=== PATIENT | female | born 1960 | race Caucasian/White ===

== ENCOUNTER 2017-09-23 11:05 | Inpatient (IN) | payer SELFPAY ==
[2017-09-23] VITALS (18 sets, daily range): BP systolic 144–180; BP diastolic 90–130; PULSE 95–113; RESP 18–30; TEMP 36.6–36.8; O2SAT 84–99; BMI 52.0; BMI 51.3; BMI 51.4
--- NOTE | 2017-09-23 11:44 | RAD_ITS ---
STUDY: X-RAY CHEST REASON FOR EXAM: Female, 57 years old. Increasing shortness of breath. Weight gain. TECHNIQUE: PA and lateral views of the chest. COMPARISON: None. FINDINGS: EKG electrodes are seen. There is evidence of vascular congestion and CHF. Blunting of the right costophrenic angle. There is mild cardiac enlargement. Normal mediastinum and ijeoma. Normal visualized pulmonary arteries. There is atherosclerotic calcification of the aortic arch with tortuosity. There are mild degenerative changes of the visualized thoracic spine. Normal visualized ribs, clavicles, and shoulders. There is no demonstrated abnormality of the visualized soft tissue structures of the upper abdomen. RAD/Chest PA and Lateral IMPRESSION: Cardiomegaly and CHF. Electronically Signed: Esteban Perry MD at 13:15 EST Tel [phone], Service support ,
--- NOTE | 2017-09-23 11:44 | EKG12_ITS ---
Test Reason : SOB Blood Pressure : / mmHG Vent. Rate : 101 BPM Atrial Rate : 101 BPM P-R Int : 138 ms QRS Dur : 076 ms QT Int : 360 ms P-R-T Axes : 043 -17 048 degrees QTc Int : 466 ms Sinus tachycardia with occasional Premature ventricular complexes Low voltage QRS (limb leads) Poor R wave progression Confirmed by BARI THRASHER, JOSETTE ([id number]), film and video editor JOS LOPEZ ([id number]) on 09/25/2017 1:23:43 PM Referred By: PATI/TONE Confirmed By:JOSETTE CANDELARIA MD
[2017-09-23 12:09] LABS: Absolute Lymphocyte Count 0.89 X10^3/ul (0.83-4.51); Absolute Neutrophil Count 8.7 X10^3/uL (2.0-7.7); Basophil# 0.05 X10^3/uL; Basophil% 0.5 % (0-1); Eosinophil# 0.31 X10^3/uL; Eosinophils% 2.8 % (0-5); Hemoglobin 14.5 g/dl (12.0-15.0); Lymphocyte # 0.89 X10^3/ul (4.0); Lymphocyte % 8.1 % (19-41); Mean Corp Hgb Conc 30.9 g/gl (32-36); Mean Corpuscular Hgb 27.2 pg (27.0-32.0); Mean Platelet Vol. 12.1 fl (6.2-12.0); Monocyte# 0.87 X10^3/uL; Monocyte% 7.9 % (0-10); Neutrophil # 8.71 X10^3/uL (2.7-7.7); Neutrophil % 79.3 % (47-70); Platelet Count 184 K/mm3 (150-450); RBC Distribution Width SD 48.3 fl (35.1-43.9); Red Blood Count 5.34 M/mm3 (4.2-5.4)
[2017-09-23 12:10] LABS: POSITIVE COUNT NO; POSITIVE DIFFERENTIAL NO; POSITIVE MORPHOLOGY NO
[2017-09-23 12:23] LABS: Anion Gap 4 (5-15); BUN 15 mg/dL (7-18); BUN/Creat Ratio 16.6 RATIO (10-20); Chloride 104 mmol/L (98-107); EST Glomerular Filtration Rate 69 mL/min (>60); Est Glom Filt Rate - Afr Amer 83 mL/min (>60); Estimated Creatinine Clearance 60.27 ml/min; Glucose 103 mg/dL (74-106); Potassium 3.3 mmol/L (3.5-5.1); Sodium Level 143 mmol/L (136-145)
[2017-09-23] MEDS: Ipratropium/Albuterol Sulfate 3 ML AMPUL.NEB INHALATION ×3 (12:33→22:15)
[2017-09-23 12:56] LABS: BNP,B-Type NATRIURETIC PEPTIDE 406.5 pg/mL (0-100)
--- NOTE | 2017-09-23 13:34 | ED.VISSUMM ---
- ER Visit Summary Date of Service: 09/23/17 Chief Complaint: Shortness of breath History of Present Illness: The patient is a 57 F presents with shortness of breath. This is been present for about 2 months. She was initially treated with a diuretic by the clinic. She had improvement after about 5 days. She is not currently on diuretic. She reports increased shortness of breath for the past few days. She also notes a significant weight gain as well as increased edema in the lower extremities. She was initially seen in urgent care but given hypertension and concern for CHF she was sent here for evaluation. She denies nausea vomiting fevers or any pain. She does report a nonproductive cough. Physical Examination: Initial pulse ox 84% on room air, 97% on 2 L nasal cannula initial blood pressure 180/130 respiratory rate 29 Moist mucous membranes Heart regular rate and rhythm Patient is tachypneic with bibasilar rales as well as wheezing Abdomen soft and nontender 2+ symmetric pitting lower extremity edema as well as chronic venous stasis changes Test Results: EKG shows sinus rhythm at a rate of 101 with PVCs. Chest x-ray does show cardiomegaly and congestive heart failure. Laboratory studies are notable for beta natruretic peptide of 406. Troponin negative. Emergency Department Course and Treatment: Workup is consistent with new onset congestive heart failure. Patient was given IV Lasix and admitted for further management. Treatment Plan: [] Disposition: Admit Impression: New onset congestive heart failure This note was generated with [employer] dictation software. It may contain incorrect words, spelling, and punctuation that were not noted in review of the chart prior to signing ED Disposition - Plan for ED Patient: Chief Complaint: Shortness of Breath Referrals: Sheri Liu,Out of [Primary Care Provider] -
--- NOTE | 2017-09-23 13:37 | PCM.HP.STD ---
Problem List (1) Acute CHF (congestive heart failure) Status: Acute (2) Hypertension Status: Chronic (3) Morbid obesity Status: Chronic History of Present Illness Date of Admission: 09/23/17 Chief Complaint: Shortness of breath for months The patient is a 57 year old F with past medical history of hypertension, morbid obesity, comes in with gradual onset of bilateral leg swelling as well as anterior abdominal wall swelling with weight gain, shortness of breath at rest and on exertion, orthopnea and PND since May 2017. She says she has no insurance and [facility] She last saw the doctors in the [facility] in July 2017, was given some breathing treatment for asthma and also a 2 week course of Lasix, which was stopped when she returned for follow-up. Denied any chest pain no dizziness or palpitations. She has no history of heart failure. Vitals in the ED showed temperature of 98F, heart rate of 104, blood pressure is 179/118, respiratory rate was 30, oxygen saturation was 84% on room air, which improved to 96% on 2 L of oxygen. Blood work shows CBC count of 11.0 hemoglobin 14.5 platelet of 184, sodium 143, potassium 3.3, chloride 104, bicarbonate 35, BUN 15 creatinine 0.9, BNP was 406. Chest x-ray shows evidence of vascular congestion suggestive of CHF. Past Medical History Past Medical History (Chronic Problems): Chronic Problems Hypertension (Chronic) Morbid obesity (Chronic) Allergies Penicillins Adverse Reaction (Verified 08/02/15 08:50) Unknown Home Medications: Ambulatory Orders Medication Instructions Recorded Aspirin [Aspirin, Baby] 81 mg PO DAILY 09/23/17 Cholecalciferol (Vitamin D3) 1 tab PO DAILY 09/23/17 [Vitamin D3] Hydrochlorothiazide [Hctz] 12.5 mg PO BID 09/23/17 Losartan Potassium 100 mg PO DAILY 09/23/17 Surgical History: cholecystectomy, herniorrhaphy - bilateral, hysterectomy - with oopherectomy Psychiatric History: No pertinent 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 Dyspnea. Denies: Chest Pain, Claudication, Chest Tightness, Palpitations, Syncope Respiratory: Reports: Shortness of Breath, Shortness of breath at rest, Shortness of breath upon exertion. Denies: Cough, Hemoptysis, Sputum production Gastrointestinal: Denies: Abdominal Pain, Constipation, Diarrhea, Hematemesis, Nausea, Vomiting Genitourinary: Denies: Dysuria, Frequency, Incontinence Musculoskeletal: Denies: Joint Pain, Joint stiffness, Joint swelling, Joint Tenderness Skin: Denies: Rash, Wounds Neurological: Denies: Difficulty swallowing, Focal weakness, Numbness, Tingling Psychiatric: Denies: Anxiety, Depression, Homicidal Ideations, Suicidal Ideations Endocrine: Denies: Heat/ Cold Intolerance, Polyuria Hematologic/ Lymphatic: Denies: Easy Bruising, Easy Bleeding VTE Information - Inpt Only VTE Present on Admission: No VTE Mechan Device Prophylaxis: None VTE Pharm Prophylaxis ordered?: Yes Patient Problems: Active and Suspected Problems Acute CHF (congestive heart failure) (Acute) - Physical Exam General: Alert, Oriented x3, Cooperative, No apparent distress HEENT: Atraumatic, PERRLA, EOMI, Normocephalic Oral: Moist Mucosa Neck: Supple, - - Short thick neck Lungs: Normal air movement, Diminished - at the lung bases Cardiovascular: Regular rate, Regular Rhythm, Normal S1, Normal S2, No murmurs Abdomen: Bowel Sounds Present, Soft, Non Tender, Non-Distended, No Hepato-splenomegaly, Obese, - - with severe edema of anterior abdominal wall. Extremities: No edema, Capillary Refill Less than 3 Seconds Skin: No rashes Musculoskeletal: No Tenderness to Palpation of Joints or Extremities Lymphatic: No Cervical, Supraclavicular, or Inguinal Adenopathy Neurological: Cranial nerves II-XII grossly intact, Neuro grossly intact Psych/Mental Status: Normal Affect, Appropriate Vital Signs Temp Pulse Resp BP Pulse Ox 98.0 F 96 28 H 164/116 H 96 09/23/17 11:05 09/23/17 13:11 09/23/17 13:11 09/23/17 13:11 09/23/17 13:11 Oxygen Flow Rate 2 Oxygen Delivery Method Nasal Cannula Weight: 137.3 kg Body Mass Index (BMI) 52.0 Laboratory Tests Past 24 Hrs 09/23/17 09/23/17 09/23/17 11:58 11:58 11:58 WBC 11.0 RBC 5.34 Hgb 14.5 Hct 47.0 MCV 88.0 MCH 27.2 MCHC 30.9 L RDW 15.0 H RDW Differential 48.3 H Plt Count 184 MPV 12.1 H Immature Gran % (Auto) 1.400 H Neut % (Auto) 79.3 H Lymph % (Auto) 8.1 L [place] % (Auto) 7.9 Eos % (Auto) 2.8 Baso % (Auto) 0.5 Absolute Neuts (auto) 8.7 H Absolute Lymphs (auto) 0.89 Total Counted Not Reportable Sodium 143 Potassium 3.3 L Chloride 104 Carbon Dioxide 35.0 H Anion Gap 4 L BUN 15 Creatinine 0.90 Estim Creat Clear Calc 60.27 Est GFR (MDRD) Af Amer 83 Est GFR (MDRD) Non-Af 69 BUN/Creatinine Ratio 16.6 Glucose 103 Calcium 9.0 Troponin I 0.02 B-Natriuretic Peptide 406.5 H Assessment/Plan Active and Suspected Problems Acute CHF (congestive heart failure) (Acute) 57 year old F with past medical history of hypertension, morbid obesity, comes in with gradual onset of bilateral leg swelling as well as anterior abdominal wall swelling with weight gain, shortness of breath at rest and on exertion, orthopnea and PND since May 2017. 1. acute CHF exacerbation, newly diagnosed, in a patient with unknown EF, suspect diastolic dysfunction the light of morbid obesity, right-sided failure signs, and uncontrolled hypertension. EKG shows normal sinus rhythm, BNP is 406, chest x-ray confirms vascular congestion. Plan: Admit to PCU, monitor on telemetry, oxygen per protocol, monitor vitals very closely, IV Lasix 40 mg 3 times daily, strict I's and O's, daily weights, cardiac diet, trend troponins, labs in the morning. Will check HgbA1c, lipid profile. She will need to be set up with some community resources so that she can be monitored closely and not relapse for re-admission. 2. Hypertensive emergency/accelerated hypertension, in a known hypertensive, on losartan and hydrochlorothiazide, hold hydrochlorothiazide in light of starting Lasix, continue losartan, IV hydralazine as needed, would not start a beta-zenia now in view of acute heart failure, continue to monitor on telemetry. 3. Hypokalemia, will replace, recheck in a.m. 4. Morbid Obesity, BMI 52.0, diet and exercise advised 5. Psoriasis, generalized, worse on the extensor extremities, prepped triamcinolone ointment to apply 3 times daily 6. DVT PPx- Lovenox Code Visit Inpatient E&M: 37688 Init Hosp L2
[2017-09-23] MEDS: Furosemide 40 MG/4 ML Vial IV ×3 (14:02→21:42)
--- NOTE | 2017-09-23 14:24 | ECHOD_ITS ---
Reason For Study: dyspnea/SOB Procedure This was a 2D Doppler, Color Flow transthoracic echocardiogram. The exam was of poor technical quality due to body habitus. The study was technically difficult. Exam performed portable in patient room. Left Ventricle Mildly dilated left ventricle. Moderate segmental systolic dysfunction (see wall motion). The estimated ejection fraction is 35 %. Infero-Basal: Hypokinetic. Basal inferoseptal: Severely Hypokinetic. Mid-Anterior : Hypokinetic. Mid-Lateral : Hypokinetic. Mid-Posterior: Hypokinetic. Mid -Inferior: Akinetic. Mid-inferoseptal : Severly Hypokinetic. [place] : Hypokinetic. Right Ventricle Normal RV size. Normal systolic function. Atria The left atrium is mildly enlarged. The right atrium is mildly enlarged. No doppler evidence for ASD. Mitral Valve There is no mitral annular calcification. Normal mitral valve. Trivial mitral valve insufficiency. Tricuspid Valve Normal tricuspid valve. Mild tricuspid valve insufficiency. Right ventricular systolic pressure estimated to be 42 mmHg. Aortic Valve Trisinus/trileaflet aortic valve. Normal aortic valve. Pulmonic Valve The pulmonic valve is not well visualized. Great Vessels Normal sized aortic root. Pericardium/Pleural Small pericardial effusion. There are no echocardiographic indications of cardiac tamponade. MMode/2D Measurements & Calculations LVIDd: 5.8 cm IVSd: 1.0 cm Ao root diam: 2.8 cm LVIDs: 4.4 cm LVPWd: 1.1 cm LA dimension: 5.2 cm RVDd: 3.5 cm FS: 23.5 % LAV(MOD-bp): 70.6 ml LA A4 area: 21.0 cm2 RA A4 area: 19.9 cm2 LAV(MOD-bp) Indexed: 30.4 ml/m2 LAV(MOD-sp2): 78.3 ml LAV(MOD-sp4): 61.7 ml Time Measurements MV dec time: 0.14 sec Doppler Measurements & Calculations MV E max cayetano: 103.1 cm/sec Lat Peak E' [place]: 7.3 cm/sec Med Peak E' [place]: 5.6 cm/sec MV A max cayetano: 85.1 cm/sec E/E' lat: 14.1 E/E' med: 18.6 MV E/A: 1.2 Ao V2 max: 141.4 cm/sec LV V1 max: 109.3 cm/sec PA V2 max: 99.1 cm/sec Ao max P.0 mmHg LV V1 max P.8 mmHg TR max cayetano: 310.7 cm/sec TR max P.9 mmHg Interpretation Summary The study was technically difficult. Mildly dilated left ventricle. Moderate segmental systolic dysfunction (see wall motion). The estimated ejection fraction is 35 %. The left atrium is mildly enlarged. The right atrium is mildly enlarged. Trivial mitral valve insufficiency. Mild tricuspid valve insufficiency. Small pericardial effusion. There are no echocardiographic indications of cardiac tamponade. Right ventricular systolic pressure estimated to be 42 mmHg. Transmitral diastolic flow velocities suggest diastolic dysfunction. Ordering Physician: Kelsie Martinez Referring Physician: OTD Performed By: Melecio, Jyotsna, RDCS, RVT
[2017-09-23 15:07] LABS: Magnesium 1.9 mg/dL (1.6-2.6); Thyroid Stim Hormone (TSH) 3.08 uIU/mL (0.358-3.74)
[2017-09-23] MEDS: 0.9% NaCl Peripheral Flush Adult/Peds IV ×2 (16:06→21:45)
[2017-09-23] MEDS: Acetaminophen 325 MG Tablet 650 MG PO (18:26)
[2017-09-24] VITALS (14 sets, daily range): BP systolic 136–143; BP diastolic 80–86; PULSE 78–97; RESP 16–20; TEMP 36.5–36.8; O2SAT 90–98
[2017-09-24 05:53] LABS: Hematocrit 43.3 % (37-47); Hemoglobin 13.2 g/dl (12.0-15.0); Mean Corp Hgb Conc 30.5 g/gl (32-36); Mean Corpuscular Volume 88.5 fL (81-99); Mean Platelet Vol. 11.7 fl (6.2-12.0); Platelet Count 178 K/mm3 (150-450); RBC Distribution Width CV 15.4 % (11.6-14.6); RBC Distribution Width SD 49.4 fl (35.1-43.9); Red Blood Count 4.89 M/mm3 (4.2-5.4); White Blood Count 10.9 K/mm3 (4.4-11.0)
[2017-09-24 05:58] LABS: Scan Indicated on CBC? Y/N NO
[2017-09-24 06:03] LABS: Anion Gap 6 (5-15); BUN 14 mg/dL (7-18); BUN/Creat Ratio 15.6 RATIO (10-20); Calcium,Total 8.2 mg/dL (8.5-10.1); Chloride 101 mmol/L (98-107); Cholesterol 136 mg/dL (200); EST Glomerular Filtration Rate 69 mL/min (>60); Est Glom Filt Rate - Afr Amer 84 mL/min (>60); Estimated Creatinine Clearance 60.27 ml/min; Glucose 86 mg/dL (74-106); High Density Lipoprotein 30 mg/dL; Potassium 3.2 mmol/L (3.5-5.1); Sodium Level 142 mmol/L (136-145); Triglycerides 146 mg/dL; Very Low Density Lipoprotein 29 mg/dL (5-40)
[2017-09-24] MEDS: Furosemide 40 MG/4 ML Vial IV ×3 (06:03→21:03)
[2017-09-24] MEDS: 0.9% NaCl Peripheral Flush Adult/Peds IV ×2 (06:04→21:03)
[2017-09-24] MEDS: Ipratropium/Albuterol Sulfate 3 ML AMPUL.NEB INHALATION ×3 (07:37→19:18)
--- NOTE | 2017-09-24 09:34 | CT_ITS ---
STUDY: CT ABDOMEN AND PELVIS WITHOUT CONTRAST REASON FOR EXAM: Female, 57 years old. Abdominal distention. Swelling of the lower extremities. History of benign ovarian tumor. RADIATION DOSAGE (If Supplied By Facility): CTDIvol = ( 24.18 ) mGy, DLP = ( 2164.55 ) mGycm TECHNIQUE: Transaxial images were obtained from the dome of the diaphragm to the symphysis pubis without oral contrast, and without intravenous contrast. Sagittal and coronal images were reconstructed. Individualized dose optimization techniques were used for this CT. COMPARISON: None. FINDINGS: Small right pleural effusion with underlying atelectasis. Minimal pericardial thickening. Diffuse ascites. Normal liver. Normal gallbladder and extrahepatic biliary system. Normal spleen. Normal pancreas. There is a 7.7 cm x 6.3 cm x 7.4 cm inhomogeneous solid mass in the right adrenal gland. A similar appearing mass measuring 4.5 cm x 4 cm x 3.9 cm mass is seen in the left adrenal gland. Normal right kidney. Normal left kidney. Normal visualized stomach. Normal small intestine. There are multiple colonic diverticula consistent with diverticulosis. The appendix is visualized and appears normal. Normal abdominal aorta. Normal inferior vena cava. There is borderline retroperitoneal lymphadenopathy with enlarged nodes no greater than 10mm in the short axis diameter. Normal urinary bladder. Diffuse abdominal wall skin thickening and subcutaneous edema. Normal osseous structures. CT/Abdomen/Pelvis without Cont IMPRESSION: Bilateral adrenal masses. Ascites. Small right pleural effusion with underlying atelectasis. Electronically Signed: Esteban Perry MD at 11:09 EST Tel [phone], Service support ,
--- NOTE | 2017-09-24 09:44 | PN_ITS ---
Patient Problems: Active and Suspected Problems Acute CHF (congestive heart failure) (Acute) Subjective: Chief complaint: Follow-up after admission for acute congestive heart failure, acute hypoxic respiratory insufficiency, abdominal distention/?? Ascites, anterior abdominal wall wound. Patient seen and examined. No acute events overnight. She reported minimal improvement of her shortness of breath. She has been complaining of progressively increasing shortness of breath since May,. It has been worsening over the last 6 weeks. It is associated with increasing leg swelling as well as increasing abdominal distention. Denied associated orthopnea. She denied chest pain, dizziness, palpitation, lightheadedness, syncope or presyncope. 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 She never had a history of heart disease. Denies history of cancer or chemotherapy. At this time, her vital signs are stable, pulse ox is 98% on 2 L. - Physical Exam General: Alert, Oriented x3, Cooperative, - - Mildly short of breath. HEENT: Atraumatic, PERRLA, EOMI Oral: Moist Mucosa, No Gingival or Mucosal Lesions/ Ulcerations Neck: Supple, No JVD, Negative Carotid Bruits, Trachea Midline, Thyroid Normal Size and Texture Lungs: No rhonchi, No wheeze, Diminished, Rales, Short of Breath, - - Decreased breath sounds bilateral, more at the bases with faint crackles. Cardiovascular: Regular rate, Regular Rhythm, Normal S1, Normal S2, PMI Normal Abdomen: Bowel Sounds Present, Soft, Non Tender, Distended, - - Usually distended, pitting edema, questionable ascites. There is a midline surgical scar with open wounds and serous drainage. Extremities: No clubbing, No cyanosis, Edema - ++ Edema. Skin: No rashes, Ulcer/ Wound Lymphatic: No Cervical, Supraclavicular, or Inguinal Adenopathy Neurological: Cranial nerves II-XII grossly intact, Motor Exam 5/5 strength throughout Psych/Mental Status: Normal Affect, Appropriate, Alert and oriented to time, place, person, mood and affect Vital Signs Temp Pulse Resp BP Pulse Ox 97.7 F L 86 16 143/84 H 98 09/24/17 03:30 09/24/17 07:38 09/24/17 07:38 09/24/17 03:30 09/24/17 07:38 Oxygen Flow Rate 2 Oxygen Delivery Method Nasal Cannula Weight: 286 lb 2.56 oz Body Mass Index (BMI) 51.3 Intake and Output for Last 24 Hours 09/22/17 09/23/17 09/24/17 23:59 23:59 23:59 Intake Total 570 / 570 220 / 220 Output Total 3300 / 3300 1200 / 1200 Balance -2730 / -2730 -980 / -980 Laboratory Tests Past 24 Hrs 09/23/17 09/23/17 09/24/17 16:25 19:35 01:32 WBC RBC Hgb Hct MCV MCH MCHC RDW RDW Differential Plt Count MPV Sodium Potassium Chloride Carbon Dioxide Anion Gap BUN Creatinine Estim Creat Clear Calc Est GFR (MDRD) Af Amer Est GFR (MDRD) Non-Af BUN/Creatinine Ratio Glucose Calcium Troponin I < 0.02 0.02 0.03 Triglycerides Cholesterol LDL Cholesterol VLDL Cholesterol HDL Cholesterol 09/24/17 09/24/17 05:24 05:24 WBC 10.9 RBC 4.89 Hgb 13.2 Hct 43.3 MCV 88.5 MCH 27.0 MCHC 30.5 L RDW 15.4 H RDW Differential 49.4 H Plt Count 178 MPV 11.7 Sodium 142 Potassium 3.2 L Chloride 101 Carbon Dioxide 35.0 H Anion Gap 6 BUN 14 Creatinine 0.90 Estim Creat Clear Calc 60.27 Est GFR (MDRD) Af Amer 84 Est GFR (MDRD) Non-Af 69 BUN/Creatinine Ratio 15.6 Glucose 86 Calcium 8.2 L Troponin I Triglycerides 146 Cholesterol 136 LDL Cholesterol 77 VLDL Cholesterol 29 HDL Cholesterol 30 L Clinical Impression(s) from Imaging Studies Chest X-Ray 09/23/17 11:44 IMPRESSION: Cardiomegaly and CHF. Electronically Signed: Esteban Perry MD at 13:15 EST Tel [phone], Service support , Assessment/Plan Active and Suspected Problems Acute CHF (congestive heart failure) (Acute) This is a 57 years old female patient presented to the emergency room because of progressively increasing shortness of breath, abdominal distention and leg edema that has been going on for around 6 months and she was found to have acute new onset systolic CHF, abdominal distention with questionable ascites in context of history of questionable benign ovarian tumor. #1 acute new onset systolic CHF: She is on IV Lasix and losartan. EKG revealed normal sinus rhythm with PVCs, no acute ischemic changes. Troponin is negative ?3. Chest x-ray revealed bilateral pulmonary vascular congestion. 2D echocardiogram showed ejection fraction of 35%, small pericardial effusion without tamponade, other findings reviewed. Blood pressure improved, pulse ox is 98% on 2 L. Patient reported minimal improvement. She never had a history of coronary artery disease and never been diagnosed with CHF. Plan: Start Coreg , cardiology consult, continue IV Lasix, PT OT evaluation and treatment. #2 acute respiratory insufficiency: Secondary to above in addition to morbid obesity and history of bronchial asthma. Never been on oxygen at home. At this time, she is on 2 L and her pulse ox is 98%. Plan to continue IV diuresis , incentives parameter, ambulate, wean off oxygen as tolerated. #3 abdominal distention/edema/questionable ascites/open wound with drainage: Abdomen is hugely distended with anterior abdominal wall pitting edema. There is midline surgical scar from the umbilicus down to the suprapubic region with open wound and serous drainage. 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 She denied receiving any chemotherapy in the past. Plan CT scan abdomen and pelvis without contrast, wound culture, wound care nurse consult. #4 hypokalemia: Secondary to HCTZ as well as IV Lasix. Today's potassium is 3.2. She is on K-Dur for replacement, plan to increase K dual to 40 mEq twice daily, Repeat BMP tomorrow morning. #5 bronchial asthma: Continue on DuoNeb every 6 hours, albuterol as needed, oxygen by nasal cannula to keep O2 saturation more than 92%. #6 hypertension: Blood pressure stable, continue losartan, start Coreg as above. #7 psoriasis: Not on treatment. She has multiple psoriatic plaques on both elbows and knees. #8 DVT prophylaxis: Subcu Lovenox. This note was generated with [employer] dictation software. It may contain incorrect words, spelling, and punctuation that were not noted in checking the note before signing. Code Visit Inpatient E&M: 70496 [facility] Hosp L3
--- NOTE | 2017-09-24 10:21 | CASEMGMT ---
This RN CM to bedside to complete CM assessment and pt is out of the department for testing at this time. RN CM will attempt again later. SStaten RN CM
[2017-09-24] MEDS: Carvedilol 6.25 MG Tablet PO ×2 (11:00→21:11)
[2017-09-24] MEDS: Losartan Potassium 100 MG Tablet PO (11:00)
[2017-09-24] MEDS: Aspirin 81 MG TAB.CHEW PO (11:00)
[2017-09-24] MEDS: Enoxaparin 40 MG/0.4 ML Syringe SC (11:02)
[2017-09-24 11:17] LABS: Bacteria 0 SEEN /hpf (None Seen); Mucous, Urine 0 SEEN /hpf (<or=2+); Red Blood Cells-Urine 0 SEEN /hpf (0-5); White Blood Cells 0 SEEN /hpf (0-5)
[2017-09-24 11:20] LABS: Color, Urine Yellow (Yellow); Glucose, Dipstick Normal (Normal); Ketone-Dipstick Negative (Negative); Leukocyte Esterase-Dipstick Negative /ul (Negative); Nitrite-Dipstick Negative (Negative); Occult Blood-Urine Negative /ul (Negative); Protein-Dipstick Negative (Negative); Urine Bilirubin Dipstick Negative (Negative); Urine Clarity Sl. Cloudy (Clear); Urine Urobilinogen Normal (Normal)
[2017-09-24 11:31] LABS: Squamous Epithelial Cells - UA 0-5 SEEN /hpf (5-10)
--- NOTE | 2017-09-24 11:54 | NURSING ---
was asked to see patient for drainage from umbilical area. patient states she has surgery numerous years ago and will occasionally get drainage from this area. abdomen is very large, firm, and distended. there is some dry crusted drainage noted below the umbilicus. there does appear to be some redness and irritation noted around the umbilical area. the irritation is most likely from the drainage. no signs of infection noted. cleansed area with soap and water and dried thoroughly. applied a dry dressing to absorb any drainage.
--- NOTE | 2017-09-24 11:59 | CASEMGMT ---
SW met with patient as she is self pay. Introduced self and role at [facility]. 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 She said her is on disability. She said they do not qualify for Medicaid. She recently went to [facility] and completed their patient financial assistance paperwork. She said they approved her to receive care covered at 100%. She will be going there for her care. She said she has been able to afford her medications. However, she does not know what she will be d/c on. SW told her SW will follow to see if we might be able to assist. Jaymie KOEHLER MSW
--- NOTE | 2017-09-24 13:33 | CHAPLAIN ---
Type of Pastoral Visit _x__ Initial Visit ___ Follow-up Visit ___ On-call Visit ___ General Patient Visit ___ Spiritual Assessment ___ Family Conference ___ Bereavement ___ Rapid Response ___ Code Blue ___ Other (describe below) Pastoral Care Referral From _x__ Patient ___ Family ___ Nurse ___ Physician ___ Special Equipment Technician ___ Playground Worker ___ Other (describe below) Sacrament/Intervention _x__ Active listening ___ Anointing ___ Gnosticist ___ Bereavement ___ Communion ___ Martha exploration ___ ___ Life review ___ Prayer ___ Reconciliation ___ Sacrament of Sick ___ Supportive presence ___ Wedding ___ Other (describe below) Pastoral Comments
[2017-09-24] MEDS: Acetaminophen 325 MG Tablet 650 MG PO (14:05)
--- NOTE | 2017-09-24 14:40 | PCM.CONS.C ---
Problem List (1) Abnormal echocardiogram Status: Acute (2) Acute CHF (congestive heart failure) Status: Acute (3) Hypertension Status: Chronic Reason for Consult Date of Consultation: 09/24/17 Reason for Consultation: Lower extremity edema, severe obesity, LV dysfunction, congestive heart failure, adrenal masses. History of Present Illness: The patient is a 57 year old F, severely obese, non-smoker, no previous cardiac disease, previous 9 pound ovarian cyst removed when she was age 24 with subsequent total hysterectomy and bilateral oophorectomy per the patient, who reports worsening dyspnea on exertion and shortness of breath as well as a 50 pound weight gain since July 2017. Patient was admitted with congestive heart failure type symptoms, and an echocardiogram was performed on 09/23/17 which demonstrated an LV ejection fraction of 35%, and RVSP of 42 mmHg. The patient denies any exertional chest pain, angina but does complain of dyspnea on exertion which is worse than her baseline reactive airway disease/asthma which he has struggled through all of her life. In addition she underwent an abdominal CT scan which demonstrated bilateral adrenal masses as well as ascites and pleural effusion. Patient has a history of allergic reactions to pine needles, and has evidence of psoriasis on her skin. [] Past Medical History Allergies/Adverse Reactions: Allergies Penicillins Adverse Reaction (Verified 08/02/15 08:50) Unknown Home Medications: Ambulatory Orders Medication Instructions Recorded Aspirin [Aspirin, Baby] 81 mg PO DAILY 09/23/17 Cholecalciferol (Vitamin D3) 1,000 units PO DAILY 09/23/17 [Vitamin D3] Hydrochlorothiazide [Hctz] 12.5 mg PO BID 09/23/17 Losartan Potassium 50 mg PO BID 09/23/17 Past Medical History (Chronic Problems): Chronic Problems Asthma (Chronic) Psoriasis (Chronic) Hypertension (Chronic) Morbid obesity (Chronic) Surgical History: cholecystectomy, herniorrhaphy - bilateral, hysterectomy - with oopherectomy 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 Denies: Chest Discomfort, PND, Peripheral Edema, Palpitations, Lightheadedness, Dizziness, Near Syncope, Syncope Respiratory: Denies: Cough, Sputum Production, Hemoptysis Gastrointestinal: Denies: Hematemesis, Hematochezia, Melena Genitourinary: Denies: Dysuria, Hematuria Skin: Denies: Rash Subjectve: Patient sitting on the edge of the bed, no acute distress, is able to lay down in a recumbent position without dyspnea but is unable to lay down flat. Patient has a very large pannus which makes right femoral axis somewhat problematic. Objective: Vital Signs Temp Pulse Resp BP Pulse Ox 98.1 F 88 16 137/86 H 90 09/24/17 10:01 09/24/17 13:51 09/24/17 13:51 09/24/17 10:01 09/24/17 13:50 Oxygen Flow Rate 2 Oxygen Delivery Method Room Air Weight: 286 lb 2.56 oz Body Mass Index (BMI) 51.3 Intake and Output for Last 24 Hours 09/22/17 09/23/17 09/24/17 23:59 23:59 23:59 Intake Total 570 / 570 420 / 420 Output Total 3300 / 3300 2850 / 2850 Balance -2730 / -2730 -2430 / -2430 General: Awake, Alert, Oriented x 3 HEENT: PERRL, EOMI, Sclera Non Icteric Neck: Supple, Good ROM, No Lymph Node Enlargement Lungs: Clear to auscultation Cardiovascular: Regular Rhythm, Normal S1, Normal S2, No Murmurs, No Rubs, No Gallops Vascular: No Carotid Bruits, Normal Femoral Pulses, Normal Radial Pulses, Normal Dorsalis Pedal Pulse, Normal Posterior Tibial Pulses Abdomen: Bowel Sounds Present, Soft, Non Tender, No HSM, No Organomegaly, Obese, Ascites Extremities: No Cyanosis, No Clubbing, No edema, Bilateral Edema +2 Neurological: No Focal Motor or Sensory Deficit 09/23/17 16:25: Troponin I < 0.02 09/23/17 19:35: Troponin I 0.02 09/24/17 01:32: Troponin I 0.03 09/24/17 05:24: Sodium 142, Potassium 3.2 L, Chloride 101, Carbon Dioxide 35.0 H, Anion Gap 6, BUN 14, Creatinine 0.90, Est GFR (MDRD) Af Amer 84, Est GFR (MDRD) Non-Af 69, BUN/Creatinine Ratio 15.6, Glucose 86, Calcium 8.2 L, Triglycerides 146, Cholesterol 136, LDL Cholesterol 77, VLDL Cholesterol 29, HDL Cholesterol 30 L 09/24/17 05:24: WBC 10.9, RBC 4.89, Hgb 13.2, Hct 43.3, MCV 88.5, MCH 27.0, MCHC 30.5 L, RDW 15.4 H, RDW Differential 49.4 H, Plt Count 178, MPV 11.7 09/24/17 11:10: Urine Color Yellow, Urine Clarity Sl. Cloudy, Urine pH 7.0, Ur Specific [place] 1.010, Urine Protein Negative, Urine Glucose (UA) Normal, Urine Ketones Negative, Urine Occult Blood Negative, Urine Nitrite Negative, Urine Bilirubin Negative, Urine Urobilinogen Normal, Ur Leukocyte Esterase Negative, Urine RBC 0 SEEN, Urine WBC 0 SEEN Rhythm: EKG: Normal sinus rhythm with PVC, poor R-wave progression across precordium in comparison to old EKG. ECHO: As above Stress Test: Cardiac Cath: Pending PCI: CT Surgery: Holter monitor: EPS: PPM: CXR: Chest CT Scan: Assessment/Plan 1. LV dysfunction: The patient has evidence of worsening LV function on 2D echo with Doppler as well as evidence of biventricular failure with pleural effusion, ascites, lower extremity edema. She is unable to lay down flat at this time so right femoral artery access is somewhat problematic given her large pannus. In addition of this the patient is found to have bilateral adrenal masses, which will need to be further investigated either with a biopsy or open resection. At this point I would recommend gentle diuresis with Lasix IV 40 mg 3 times daily and attempt to try and decompress her abdomen so as to gain access to her right femoral artery for left heart catheterization evaluation. Her TSH is normal. Recommend replacing her potassium as well. Keep potassium above 4.0. Also recommend checking her magnesium level and adjusting this upwards above 2.0 as well. Continue baby aspirin for now. When she is able to lay down flat and assuming we can adjust her pannus, we can then proceed with left heart catheterization to evaluate her coronary arteries to determine why her LV function has deteriorated. It appears that her symptoms started around July 2017 and she has had a 50 pound weight gain since that time. I am also in agreement with high-dose losartan for afterload reduction as well. Would hold off on adding aspirin and Plavix until catheterization is been completed so as to avoid complications should she require needle biopsy of her adrenals or open resection. 2. Hyperlipidemia: Her LDL is 77, and HDL is 30. 3. Thank you very much for the opportunity to participate in the cardiac care of your patient. Consultation time took place between 11 and 11:30 AM. Code Visit Inpatient E&M: 75215 Init Hosp L2
--- NOTE | 2017-09-24 14:50 | CON.PCM_ITS ---
Problem List (1) Abnormal echocardiogram Status: Acute (2) Acute CHF (congestive heart failure) Status: Acute (3) Hypertension Status: Chronic Reason for Consult Date of Consultation: 09/24/17 Reason for Consultation: Lower extremity edema, severe obesity, LV dysfunction, congestive heart failure, adrenal masses. History of Present Illness: The patient is a 57 year old F, severely obese, non-smoker, no previous cardiac disease, previous 9 pound ovarian cyst removed when she was age 24 with subsequent total hysterectomy and bilateral oophorectomy per the patient, who reports worsening dyspnea on exertion and shortness of breath as well as a 50 pound weight gain since July 2017. Patient was admitted with congestive heart failure type symptoms, and an echocardiogram was performed on 09/23/17 which demonstrated an LV ejection fraction of 35%, and RVSP of 42 mmHg. The patient denies any exertional chest pain, angina but does complain of dyspnea on exertion which is worse than her baseline reactive airway disease/ asthma which he has struggled through all of her life. In addition she underwent an abdominal CT scan which demonstrated bilateral adrenal masses as well as ascites and pleural effusion. Patient has a history of allergic reactions to pine needles, and has evidence of psoriasis on her skin. [] Past Medical History Allergies/Adverse Reactions: Allergies Penicillins Adverse Reaction (Verified 08/02/15 08:50) Unknown Home Medications: Ambulatory Orders Medication Instructions Recorded Aspirin [Aspirin, Baby] 81 mg PO DAILY 09/23/17 Cholecalciferol (Vitamin D3) 1,000 units PO DAILY 09/23/17 [Vitamin D3] Hydrochlorothiazide [Hctz] 12.5 mg PO BID 09/23/17 Losartan Potassium 50 mg PO BID 09/23/17 Past Medical History (Chronic Problems): Chronic Problems Asthma (Chronic) Psoriasis (Chronic) Hypertension (Chronic) Morbid obesity (Chronic) Surgical History: cholecystectomy, herniorrhaphy - bilateral, hysterectomy - with oopherectomy 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 Denies: Chest Discomfort, PND, Peripheral Edema, Palpitations, Lightheadedness, Dizziness, Near Syncope, Syncope Respiratory: Denies: Cough, Sputum Production, Hemoptysis Gastrointestinal: Denies: Hematemesis, Hematochezia, Melena Genitourinary: Denies: Dysuria, Hematuria Skin: Denies: Rash Subjectve: Patient sitting on the edge of the bed, no acute distress, is able to lay down in a recumbent position without dyspnea but is unable to lay down flat. Patient has a very large pannus which makes right femoral axis somewhat problematic. Objective: Vital Signs Temp Pulse Resp BP Pulse Ox 98.1 F 88 16 137/86 H 90 09/24/17 10:01 09/24/17 13:51 09/24/17 13:51 09/24/17 10:01 09/24/17 13:50 Oxygen Flow Rate 2 Oxygen Delivery Method Room Air Weight: 286 lb 2.56 oz Body Mass Index (BMI) 51.3 Intake and Output for Last 24 Hours 09/22/17 09/23/17 09/24/17 23:59 23:59 23:59 Intake Total 570 / 570 420 / 420 Output Total 3300 / 3300 2850 / 2850 Balance -2730 / -2730 -2430 / -2430 General: Awake, Alert, Oriented x 3 HEENT: PERRL, EOMI, Sclera Non Icteric Neck: Supple, Good ROM, No Lymph Node Enlargement Lungs: Clear to auscultation Cardiovascular: Regular Rhythm, Normal S1, Normal S2, No Murmurs, No Rubs, No Gallops Vascular: No Carotid Bruits, Normal Femoral Pulses, Normal Radial Pulses, Normal Dorsalis Pedal Pulse, Normal Posterior Tibial Pulses Abdomen: Bowel Sounds Present, Soft, Non Tender, No HSM, No Organomegaly, Obese , Ascites Extremities: No Cyanosis, No Clubbing, No edema, Bilateral Edema +2 Neurological: No Focal Motor or Sensory Deficit 09/23/17 16:25: Troponin I < 0.02 09/23/17 19:35: Troponin I 0.02 09/24/17 01:32: Troponin I 0.03 09/24/17 05:24: Sodium 142, Potassium 3.2 L, Chloride 101, Carbon Dioxide 35.0 H , Anion Gap 6, BUN 14, Creatinine 0.90, Est GFR (MDRD) Af Amer 84, Est GFR (MDRD ) Non-Af 69, BUN/Creatinine Ratio 15.6, Glucose 86, Calcium 8.2 L, Triglycerides 146, Cholesterol 136, LDL Cholesterol 77, VLDL Cholesterol 29, HDL Cholesterol 30 L 09/24/17 05:24: WBC 10.9, RBC 4.89, Hgb 13.2, Hct 43.3, MCV 88.5, MCH 27.0, MCHC 30.5 L, RDW 15.4 H, RDW Differential 49.4 H, Plt Count 178, MPV 11.7 09/24/17 11:10: Urine Color Yellow, Urine Clarity Sl. Cloudy, Urine pH 7.0, Ur Specific [place] 1.010, Urine Protein Negative, Urine Glucose (UA) Normal, Urine Ketones Negative, Urine Occult Blood Negative, Urine Nitrite Negative, Urine Bilirubin Negative, Urine Urobilinogen Normal, Ur Leukocyte Esterase Negative, Urine RBC 0 SEEN, Urine WBC 0 SEEN Rhythm: EKG: Normal sinus rhythm with PVC, poor R-wave progression across precordium in comparison to old EKG. ECHO: As above Stress Test: Cardiac Cath: Pending PCI: CT Surgery: Holter monitor: EPS: PPM: CXR: Chest CT Scan: Assessment/Plan 1. LV dysfunction: The patient has evidence of worsening LV function on 2D echo with Doppler as well as evidence of biventricular failure with pleural effusion, ascites, lower extremity edema. She is unable to lay down flat at this time so right femoral artery access is somewhat problematic given her large pannus. In addition of this the patient is found to have bilateral adrenal masses, which will need to be further investigated either with a biopsy or open resection. At this point I would recommend gentle diuresis with Lasix IV 40 mg 3 times daily and attempt to try and decompress her abdomen so as to gain access to her right femoral artery for left heart catheterization evaluation. Her TSH is normal. Recommend replacing her potassium as well. Keep potassium above 4.0. Also recommend checking her magnesium level and adjusting this upwards above 2.0 as well. Continue baby aspirin for now. When she is able to lay down flat and assuming we can adjust her pannus, we can then proceed with left heart catheterization to evaluate her coronary arteries to determine why her LV function has deteriorated. It appears that her symptoms started around July 2017 and she has had a 50 pound weight gain since that time. I am also in agreement with high-dose losartan for afterload reduction as well. Would hold off on adding aspirin and Plavix until catheterization is been completed so as to avoid complications should she require needle biopsy of her adrenals or open resection. 2. Hyperlipidemia: Her LDL is 77, and HDL is 30. 3. Thank you very much for the opportunity to participate in the cardiac care of your patient. Consultation time took place between 11 and 11:30 AM. Code Visit Inpatient E&M: 93762 Init Hosp L2
--- NOTE | 2017-09-24 15:09 | CASEMGMT ---
Face to Face with patient for initial transition planning/care coordination assessment. RN ROB introduced self and role at [facility], pt voices understanding and consents to assessment at this time. Pt sitting up on side of bed in no distress at this time. Pt A/O x4 at this time and answers all questions appropriately at this time. Care providers, pharmacy, and demographics verified. See attached link. Pt voices no further concerns/needs at this time. Advised pt to ask for CM if any further questions/concerns/needs arise, voices understanding. CM to follow for any further discharge planning/needs arise. PLAN: [place] [facility]
[2017-09-24] MEDS: MELATONIN 3 MG TABLET PO (21:03)
[2017-09-25] VITALS (14 sets, daily range): BP systolic 116–138; BP diastolic 66–87; PULSE 77–94; RESP 16–24; TEMP 36–36.9; O2SAT 92–96
[2017-09-25] MEDS: Acetaminophen 325 MG Tablet 650 MG PO ×2 (00:33→17:36)
[2017-09-25] MEDS: Ipratropium/Albuterol Sulfate 3 ML AMPUL.NEB INHALATION ×4 (00:35→19:14)
[2017-09-25] MEDS: Furosemide 40 MG/4 ML Vial IV ×3 (05:26→21:21)
[2017-09-25] MEDS: 0.9% NaCl Peripheral Flush Adult/Peds IV ×2 (05:30→13:17)
[2017-09-25 06:26] LABS: Absolute Lymphocyte Count 0.69 X10^3/ul (0.83-4.51); Absolute Neutrophil Count 7.1 X10^3/uL (2.0-7.7); Basophil# 0.04 X10^3/uL; Basophil% 0.4 % (0-1); Eosinophil# 0.36 X10^3/uL; Eosinophils% 3.9 % (0-5); Lymphocyte # 0.69 X10^3/ul (4.0); Lymphocyte % 7.6 % (19-41); Mean Corp Hgb Conc 29.2 g/gl (32-36); Mean Corpuscular Hgb 26.5 pg (27.0-32.0); Mean Corpuscular Volume 90.7 fL (81-99); Mean Platelet Vol. 11.6 fl (6.2-12.0); Monocyte% 8.8 % (0-10); Neutrophil # 7.14 X10^3/uL (2.7-7.7); Neutrophil % 78.3 % (47-70); Platelet Count 170 K/mm3 (150-450); RBC Distribution Width CV 15.3 % (11.6-14.6); RBC Distribution Width SD 50.6 fl (35.1-43.9); Red Blood Count 5.29 M/mm3 (4.2-5.4); White Blood Count 9.1 K/mm3 (4.4-11.0)
[2017-09-25 06:37] LABS: International Normalized Ratio 1.2; Partial Thromboplast Time 26.7 Seconds (24.1-36.2); Prothrombin Time (Protime)PT. 14.9 SECONDS (11.7-14.9)
[2017-09-25 06:53] LABS: POSITIVE COUNT NO; POSITIVE DIFFERENTIAL NO; POSITIVE MORPHOLOGY NO
[2017-09-25 06:55] LABS: AST(SGOT) 21 U/L (15-37); Alanine Aminotransfer ALT/SGPT 16 U/L (13-56); Albumin, Serum 3.6 g/dL (3.2-5.0); Alkaline Phosphatase 110 U/L (45-117); Anion Gap 6 (5-15); BUN 17 mg/dL (7-18); BUN/Creat Ratio 17.1 RATIO (10-20); Calcium,Total 8.7 mg/dL (8.5-10.1); Chloride 101 mmol/L (98-107); EST Glomerular Filtration Rate 61 mL/min (>60); Est Glom Filt Rate - Afr Amer 74 mL/min (>60); Estimated Creatinine Clearance 54.24 ml/min; Globulin 3.7 g/dL (2.2-4.2); Glucose 94 mg/dL (74-106); LDH 263 U/L (84-246); Protein, Total 7.3 g/dL (6.4-8.2); Sodium Level 144 mmol/L (136-145)
--- NOTE | 2017-09-25 07:46 | PCM.PROGNOTE ---
Patient Problems: Active and Suspected Problems Abnormal echocardiogram (Acute) Acute CHF (congestive heart failure) (Acute) Subjective: Chief complaint: Follow-up after admission for acute new onset systolic CHF, acute hypoxic aspirate insufficiency, diffuse arthritis, bilateral adrenal masses. Patient seen and examined. No acute events overnight. She is a poor informant but mentioned that her shortness of breath is getting better. She is still requiring oxygen up to 2 L. She denied chest pain, palpitation, dizziness or lightheadedness. Denied abdominal pain, nausea or vomiting. Other than being hypoxic and requiring oxygen, other vital signs are stable. - Physical Exam General: Alert, Oriented x3, Cooperative, - - She is moderately short of breath. HEENT: Atraumatic, PERRLA, EOMI Oral: Moist Mucosa, No Gingival or Mucosal Lesions/ Ulcerations Neck: Supple, No JVD, Negative Carotid Bruits, Trachea Midline, Thyroid Normal Size and Texture Lungs: No rhonchi, No wheeze, No rales, Diminished, Short of Breath, - - Decreased breath sounds bilateral, more at the bases. Cardiovascular: Regular rate, Regular Rhythm, Normal S1, Normal S2, PMI Normal Abdomen: Bowel Sounds Present, Soft, No Hepato-splenomegaly, Distended, - - Ascites, anterior abdominal wall pitting edema, old midline surgical scar below the umbilicus with open wound and serous drainage. Extremities: No clubbing, No cyanosis, Edema - ++ Edema, stasis dermatitis. Skin: No rashes, Ulcer/ Wound Lymphatic: No Cervical, Supraclavicular, or Inguinal Adenopathy Neurological: Cranial nerves II-XII grossly intact, Motor Exam 5/5 strength throughout Psych/Mental Status: Normal Affect, Appropriate, Alert and oriented to time, place, person, mood and affect Vital Signs Temp Pulse Resp BP Pulse Ox 97.8 F 78 20 H 133/87 H 92 09/25/17 02:54 09/25/17 06:57 09/25/17 02:54 09/25/17 02:54 09/25/17 02:54 Oxygen Flow Rate 2 Oxygen Delivery Method Nasal Cannula Weight: 283 lb 15.286 oz Body Mass Index (BMI) 51.3 Intake and Output for Last 24 Hours 09/23/17 09/24/17 09/25/17 23:59 23:59 23:59 Intake Total 570 / 570 720 / 720 400 / 400 Output Total 3300 / 3300 3900 / 3900 1000 / 1000 Balance -2730 / -2730 -3180 / -3180 -600 / -600 Laboratory Tests Past 24 Hrs 09/24/17 09/24/17 09/24/17 11:10 18:35 18:35 WBC RBC Hgb Hct MCV MCH MCHC RDW RDW Differential Plt Count MPV Immature Gran % (Auto) Neut % (Auto) Lymph % (Auto) [place] % (Auto) Eos % (Auto) Baso % (Auto) Absolute Neuts (auto) Absolute Lymphs (auto) Total Counted PT INR APTT Sodium Potassium Chloride Carbon Dioxide Anion Gap BUN Creatinine Estim Creat Clear Calc Est GFR (MDRD) Af Amer Est GFR (MDRD) Non-Af BUN/Creatinine Ratio Glucose Calcium Total Bilirubin AST ALT Alkaline Phosphatase Lactate Dehydrogenase Total Protein Albumin Globulin Albumin/Globulin Ratio Renin Pending Aldosterone Cortisol Pending Urine Color Yellow Urine Clarity Sl. Cloudy Urine pH 7.0 Ur Specific [place] 1.010 Urine Protein Negative Urine Glucose (UA) Normal Urine Ketones Negative Urine Occult Blood Negative Urine Nitrite Negative Urine Bilirubin Negative Urine Urobilinogen Normal Ur Leukocyte Esterase Negative Urine RBC 0 SEEN Urine WBC 0 SEEN Ur Squamous Epith Cells 0-5 SEEN Urine Bacteria 0 SEEN Urine Mucus 0 SEEN 09/24/17 09/25/17 09/25/17 18:35 06:00 06:00 WBC 9.1 RBC 5.29 Hgb 14.0 Hct 48.0 H MCV 90.7 MCH 26.5 L MCHC 29.2 L RDW 15.3 H RDW Differential 50.6 H Plt Count 170 MPV 11.6 Immature Gran % (Auto) 1.000 H Neut % (Auto) 78.3 H Lymph % (Auto) 7.6 L [place] % (Auto) 8.8 Eos % (Auto) 3.9 Baso % (Auto) 0.4 Absolute Neuts (auto) 7.1 Absolute Lymphs (auto) 0.69 L Total Counted Not Reportable PT 14.9 INR 1.2 APTT 26.7 Sodium Potassium Chloride Carbon Dioxide Anion Gap BUN Creatinine Estim Creat Clear Calc Est GFR (MDRD) Af Amer Est GFR (MDRD) Non-Af BUN/Creatinine Ratio Glucose Calcium Total Bilirubin AST ALT Alkaline Phosphatase Lactate Dehydrogenase Total Protein Albumin Globulin Albumin/Globulin Ratio Renin Pending Aldosterone Pending Cortisol Urine Color Urine Clarity Urine pH Ur Specific [place] Urine Protein Urine Glucose (UA) Urine Ketones Urine Occult Blood Urine Nitrite Urine Bilirubin Urine Urobilinogen Ur Leukocyte Esterase Urine RBC Urine WBC Ur Squamous Epith Cells Urine Bacteria Urine Mucus 09/25/17 06:00 WBC RBC Hgb Hct MCV MCH MCHC RDW RDW Differential Plt Count MPV Immature Gran % (Auto) Neut % (Auto) Lymph % (Auto) [place] % (Auto) Eos % (Auto) Baso % (Auto) Absolute Neuts (auto) Absolute Lymphs (auto) Total Counted PT INR APTT Sodium 144 Potassium 4.0 Chloride 101 Carbon Dioxide 37.0 H Anion Gap 6 BUN 17 Creatinine 1.00 Estim Creat Clear Calc 54.24 Est GFR (MDRD) Af Amer 74 Est GFR (MDRD) Non-Af 61 BUN/Creatinine Ratio 17.1 Glucose 94 Calcium 8.7 Total Bilirubin 1.00 AST 21 ALT 16 Alkaline Phosphatase 110 Lactate Dehydrogenase 263 H Total Protein 7.3 Albumin 3.6 Globulin 3.7 Albumin/Globulin Ratio 1.0 Renin Aldosterone Cortisol Urine Color Urine Clarity Urine pH Ur Specific [place] Urine Protein Urine Glucose (UA) Urine Ketones Urine Occult Blood Urine Nitrite Urine Bilirubin Urine Urobilinogen Ur Leukocyte Esterase Urine RBC Urine WBC Ur Squamous Epith Cells Urine Bacteria Urine Mucus Clinical Impression(s) from Imaging Studies Chest X-Ray 09/23/17 11:44 IMPRESSION: Cardiomegaly and CHF. Electronically Signed: Esteban Perry MD at 13:15 EST Tel [phone], Service support , Abdomen/Pelvis CT 09/24/17 09:34 IMPRESSION: Bilateral adrenal masses. Ascites. Small right pleural effusion with underlying atelectasis. Electronically Signed: Esteban Perry MD at 11:09 EST Tel [phone], Service support , Assessment/Plan Active and Suspected Problems Abnormal echocardiogram (Acute) Acute CHF (congestive heart failure) (Acute) This is a 57 years old female patient presented to the emergency room because of progressively increasing shortness of breath, abdominal distention and leg edema that has been going on for around 6 months and she was found to have acute new onset systolic CHF, abdominal distention with questionable ascites in context of history of questionable benign ovarian tumor. #1 acute new onset systolic CHF: She is on IV Lasix, Coreg and losartan. She reported minimal improvement of her symptoms. Troponin is negative ?3. 2D echocardiogram showed ejection fraction of 35%, small pericardial effusion without tamponade, other findings reviewed. She never had a history of coronary artery disease and never been diagnosed with CHF. Cardiology consulted, plan to continue IV diuresis, possible cardiac catheterization after improvement. Plan: Continue same treatment. #2 acute respiratory insufficiency: Secondary to above in addition to morbid obesity and history of bronchial asthma. She reported minimal improvement of her shortness of breath, pulse ox is 92% on 2 L. Plan to continue IV diuresis, incentives parameter, ambulate, wean off oxygen as tolerated. #3 bilateral adrenal masses: CT scan abdomen and pelvis without contrast revealed bilateral adrenal masses, larger in size, inhomogenous solid masses. Patient mentioned that her blood pressure is always difficult to control and this raises concern of possible pheochromocytoma. Serum creatinine, aldosterone, cortisol, 3 urine and free plasma metanephrines ordered yesterday. Oncology consulted. #4 ascites: Could be multifactorial secondary to CHF in addition to possible adrenal malignancy. Plan: Abdominal paracentesis, ascitic fluid analysis for cell with differential count, cytology, culture, body fluid LDH, protein and glucose. #5 Anterior abdominal wall old surgical scar with open wound with drainage: There is no evidence of erythema or swelling around this old surgical scar but there is serous drainage. Wound culture sent. Patient is afebrile, no leukocytosis. Wound care nurse consulted. Plan to wait for cultures, no indication for IV antibiotics. #6 hypokalemia: Secondary to HCTZ as well as IV Lasix. Potassium replaced and corrected, today's potassium is 4. #7 bronchial asthma: Continue on DuoNeb every 6 hours, albuterol as needed, oxygen by nasal cannula to keep O2 saturation more than 92%. #8 hypertension: Blood pressure stable, continue losartan and Coreg as above. #9 psoriasis: Not on treatment. She has multiple psoriatic plaques on both elbows and knees. #10 DVT prophylaxis: Subcu Lovenox. This note was generated with [employer] dictation software. It may contain incorrect words, spelling, and punctuation that were not noted in checking the note before signing. Code Visit Inpatient E&M: 65572 Subs Hosp L3
--- NOTE | 2017-09-25 07:56 | PN_ITS ---
Patient Problems: Active and Suspected Problems Abnormal echocardiogram (Acute) Acute CHF (congestive heart failure) (Acute) Subjective: Chief complaint: Follow-up after admission for acute new onset systolic CHF, acute hypoxic aspirate insufficiency, diffuse arthritis, bilateral adrenal masses. Patient seen and examined. No acute events overnight. She is a poor informant but mentioned that her shortness of breath is getting better. She is still requiring oxygen up to 2 L. She denied chest pain, palpitation, dizziness or lightheadedness. Denied abdominal pain, nausea or vomiting. Other than being hypoxic and requiring oxygen, other vital signs are stable. - Physical Exam General: Alert, Oriented x3, Cooperative, - - She is moderately short of breath. HEENT: Atraumatic, PERRLA, EOMI Oral: Moist Mucosa, No Gingival or Mucosal Lesions/ Ulcerations Neck: Supple, No JVD, Negative Carotid Bruits, Trachea Midline, Thyroid Normal Size and Texture Lungs: No rhonchi, No wheeze, No rales, Diminished, Short of Breath, - - Decreased breath sounds bilateral, more at the bases. Cardiovascular: Regular rate, Regular Rhythm, Normal S1, Normal S2, PMI Normal Abdomen: Bowel Sounds Present, Soft, No Hepato-splenomegaly, Distended, - - Ascites, anterior abdominal wall pitting edema, old midline surgical scar below the umbilicus with open wound and serous drainage. Extremities: No clubbing, No cyanosis, Edema - ++ Edema, stasis dermatitis. Skin: No rashes, Ulcer/ Wound Lymphatic: No Cervical, Supraclavicular, or Inguinal Adenopathy Neurological: Cranial nerves II-XII grossly intact, Motor Exam 5/5 strength throughout Psych/Mental Status: Normal Affect, Appropriate, Alert and oriented to time, place, person, mood and affect Vital Signs Temp Pulse Resp BP Pulse Ox 97.8 F 78 20 H 133/87 H 92 09/25/17 02:54 09/25/17 06:57 09/25/17 02:54 09/25/17 02:54 09/25/17 02:54 Oxygen Flow Rate 2 Oxygen Delivery Method Nasal Cannula Weight: 283 lb 15.286 oz Body Mass Index (BMI) 51.3 Intake and Output for Last 24 Hours 09/23/17 09/24/17 09/25/17 23:59 23:59 23:59 Intake Total 570 / 570 720 / 720 400 / 400 Output Total 3300 / 3300 3900 / 3900 1000 / 1000 Balance -2730 / -2730 -3180 / -3180 -600 / -600 Laboratory Tests Past 24 Hrs 09/24/17 09/24/17 09/24/17 11:10 18:35 18:35 WBC RBC Hgb Hct MCV MCH MCHC RDW RDW Differential Plt Count MPV Immature Gran % (Auto) Neut % (Auto) Lymph % (Auto) [place] % (Auto) Eos % (Auto) Baso % (Auto) Absolute Neuts (auto) Absolute Lymphs (auto) Total Counted PT INR APTT Sodium Potassium Chloride Carbon Dioxide Anion Gap BUN Creatinine Estim Creat Clear Calc Est GFR (MDRD) Af Amer Est GFR (MDRD) Non-Af BUN/Creatinine Ratio Glucose Calcium Total Bilirubin AST ALT Alkaline Phosphatase Lactate Dehydrogenase Total Protein Albumin Globulin Albumin/Globulin Ratio Renin Pending Aldosterone Cortisol Pending Urine Color Yellow Urine Clarity Sl. Cloudy Urine pH 7.0 Ur Specific [place] 1.010 Urine Protein Negative Urine Glucose (UA) Normal Urine Ketones Negative Urine Occult Blood Negative Urine Nitrite Negative Urine Bilirubin Negative Urine Urobilinogen Normal Ur Leukocyte Esterase Negative Urine RBC 0 SEEN Urine WBC 0 SEEN Ur Squamous Epith Cells 0-5 SEEN Urine Bacteria 0 SEEN Urine Mucus 0 SEEN 09/24/17 09/25/17 09/25/17 18:35 06:00 06:00 WBC 9.1 RBC 5.29 Hgb 14.0 Hct 48.0 H MCV 90.7 MCH 26.5 L MCHC 29.2 L RDW 15.3 H RDW Differential 50.6 H Plt Count 170 MPV 11.6 Immature Gran % (Auto) 1.000 H Neut % (Auto) 78.3 H Lymph % (Auto) 7.6 L [place] % (Auto) 8.8 Eos % (Auto) 3.9 Baso % (Auto) 0.4 Absolute Neuts (auto) 7.1 Absolute Lymphs (auto) 0.69 L Total Counted Not Reportable PT 14.9 INR 1.2 APTT 26.7 Sodium Potassium Chloride Carbon Dioxide Anion Gap BUN Creatinine Estim Creat Clear Calc Est GFR (MDRD) Af Amer Est GFR (MDRD) Non-Af BUN/Creatinine Ratio Glucose Calcium Total Bilirubin AST ALT Alkaline Phosphatase Lactate Dehydrogenase Total Protein Albumin Globulin Albumin/Globulin Ratio Renin Pending Aldosterone Pending Cortisol Urine Color Urine Clarity Urine pH Ur Specific [place] Urine Protein Urine Glucose (UA) Urine Ketones Urine Occult Blood Urine Nitrite Urine Bilirubin Urine Urobilinogen Ur Leukocyte Esterase Urine RBC Urine WBC Ur Squamous Epith Cells Urine Bacteria Urine Mucus 09/25/17 06:00 WBC RBC Hgb Hct MCV MCH MCHC RDW RDW Differential Plt Count MPV Immature Gran % (Auto) Neut % (Auto) Lymph % (Auto) [place] % (Auto) Eos % (Auto) Baso % (Auto) Absolute Neuts (auto) Absolute Lymphs (auto) Total Counted PT INR APTT Sodium 144 Potassium 4.0 Chloride 101 Carbon Dioxide 37.0 H Anion Gap 6 BUN 17 Creatinine 1.00 Estim Creat Clear Calc 54.24 Est GFR (MDRD) Af Amer 74 Est GFR (MDRD) Non-Af 61 BUN/Creatinine Ratio 17.1 Glucose 94 Calcium 8.7 Total Bilirubin 1.00 AST 21 ALT 16 Alkaline Phosphatase 110 Lactate Dehydrogenase 263 H Total Protein 7.3 Albumin 3.6 Globulin 3.7 Albumin/Globulin Ratio 1.0 Renin Aldosterone Cortisol Urine Color Urine Clarity Urine pH Ur Specific [place] Urine Protein Urine Glucose (UA) Urine Ketones Urine Occult Blood Urine Nitrite Urine Bilirubin Urine Urobilinogen Ur Leukocyte Esterase Urine RBC Urine WBC Ur Squamous Epith Cells Urine Bacteria Urine Mucus Clinical Impression(s) from Imaging Studies Chest X-Ray 09/23/17 11:44 IMPRESSION: Cardiomegaly and CHF. Electronically Signed: Esteban Perry MD at 13:15 EST Tel [phone], Service support , Abdomen/Pelvis CT 09/24/17 09:34 IMPRESSION: Bilateral adrenal masses. Ascites. Small right pleural effusion with underlying atelectasis. Electronically Signed: Esteban Perry MD at 11:09 EST Tel [phone], Service support , Assessment/Plan Active and Suspected Problems Abnormal echocardiogram (Acute) Acute CHF (congestive heart failure) (Acute) This is a 57 years old female patient presented to the emergency room because of progressively increasing shortness of breath, abdominal distention and leg edema that has been going on for around 6 months and she was found to have acute new onset systolic CHF, abdominal distention with questionable ascites in context of history of questionable benign ovarian tumor. #1 acute new onset systolic CHF: She is on IV Lasix, Coreg and losartan. She reported minimal improvement of her symptoms. Troponin is negative ?3. 2D echocardiogram showed ejection fraction of 35%, small pericardial effusion without tamponade, other findings reviewed. She never had a history of coronary artery disease and never been diagnosed with CHF. Cardiology consulted , plan to continue IV diuresis, possible cardiac catheterization after improvement. Plan: Continue same treatment. #2 acute respiratory insufficiency: Secondary to above in addition to morbid obesity and history of bronchial asthma. She reported minimal improvement of her shortness of breath, pulse ox is 92% on 2 L. Plan to continue IV diuresis, incentives parameter, ambulate, wean off oxygen as tolerated. #3 bilateral adrenal masses: CT scan abdomen and pelvis without contrast revealed bilateral adrenal masses, larger in size, inhomogenous solid masses. Patient mentioned that her blood pressure is always difficult to control and this raises concern of possible pheochromocytoma. Serum creatinine, aldosterone , cortisol, 3 urine and free plasma metanephrines ordered yesterday. Oncology consulted. #4 ascites: Could be multifactorial secondary to CHF in addition to possible adrenal malignancy. Plan: Abdominal paracentesis, ascitic fluid analysis for cell with differential count, cytology, culture, body fluid LDH, protein and glucose. #5 Anterior abdominal wall old surgical scar with open wound with drainage: There is no evidence of erythema or swelling around this old surgical scar but there is serous drainage. Wound culture sent. Patient is afebrile, no leukocytosis. Wound care nurse consulted. Plan to wait for cultures, no indication for IV antibiotics. #6 hypokalemia: Secondary to HCTZ as well as IV Lasix. Potassium replaced and corrected, today's potassium is 4. #7 bronchial asthma: Continue on DuoNeb every 6 hours, albuterol as needed, oxygen by nasal cannula to keep O2 saturation more than 92%. #8 hypertension: Blood pressure stable, continue losartan and Coreg as above. #9 psoriasis: Not on treatment. She has multiple psoriatic plaques on both elbows and knees. #10 DVT prophylaxis: Subcu Lovenox. This note was generated with Intense dictation software. It may contain incorrect words, spelling, and punctuation that were not noted in checking the note before signing. Code Visit Inpatient E&M: 63959 Subs Hosp L3
--- NOTE | 2017-09-25 08:38 | PCM.CONS.B ---
Problem List (1) Adrenal hyperplasia Status: Acute - Consult Date of Consult: 09/25/17 - Reason for Consult HPI: Patient is a 57-year-old female who has history of asthma. She was admitted for progressive dyspnea and volume overload. She was found to have congestive heart failure with an EF of 35%. A CT scan of the abdomen and pelvis done demonstrated significant bilateral adrenal gland enlargement/mass. Patient relates that over the last year she's gained proximally 70 pounds. 30 pounds were within the last month. She was seen by her primary care physician at the [facility] and because of her history of asthma was given a renewal on her inhaler and placed on diuresis. Patient had ran out of her inhaler some time ago. She has an infrequent cough with no sputum production. She has chest pressure with exertion. Lower extremity swelling has started decrease in starting diuresis. She has no abdominal pain or diarrhea. Significantly, her brother and her maternal grand father carry a diagnosis of MEN syndrome. Subtype is unknown. Allergies Penicillins Adverse Reaction (Verified 08/02/15 08:50) Unknown Current Medications Acetaminophen (Tylenol) 650 mg PO Q6H PRN PRN PRN Reason: PAIN Last Admin: 09/25/17 00:33 Dose: 650 mg Albuterol/Ipratropium (Duoneb) 3 ml INHALATION Q6H.RT [facility] Last Admin: 09/25/17 07:13 Dose: 3 ml Aspirin (Aspirin, Baby) 81 mg PO DAILY@0800 [facility] Last Admin: 09/24/17 11:00 Dose: 81 mg Bisacodyl (Dulcolax) 5 mg PO DAILY PRN PRN PRN Reason: Constipation Carvedilol (Coreg) 6.25 mg PO BID [facility] Last Admin: 09/24/17 21:11 Dose: 6.25 mg Cholecalciferol (Vitamin D) 1,000 unit PO DAILY [facility] Last Admin: 09/24/17 11:00 Dose: 1,000 unit Enoxaparin Sodium (Lovenox) 40 mg SC DAILY@1000 [facility] Last Admin: 09/24/17 11:02 Dose: 40 mg Furosemide (Lasix) 40 mg IV TID [facility] Last Admin: 09/25/17 05:26 Dose: 40 mg Hydralazine HCl (Apresoline) 5 mg IV Q6H PRN PRN PRN Reason: BLOOD PRESSURE Losartan Potassium (Cozaar) 100 mg PO DAILY [facility] Last Admin: 09/24/17 11:00 Dose: 100 mg Magnesium Hydroxide (Milk Of Magnesia) 30 ml PO DAILY PRN PRN Reason: Constipation Melatonin (Melatonin) 3 mg PO QHS [facility] Last Admin: 09/24/17 21:03 Dose: 3 mg Ondansetron HCl (Zofran) 4 mg IV Q8H PRN PRN PRN Reason: Nausea Potassium Chloride (K-Dur) 40 meq PO DAILYCM [facility] Last Admin: 09/25/17 08:10 Dose: 40 meq Psyllium Hydrophilic Mucilloid (Metamucil) 1 packet PO DAILY PRN PRN PRN Reason: CONSTIPATION Sodium Chloride () 5 - 30 ml IV UD PRN PRN Reason: SALINE FLUSH Last Admin: 09/25/17 05:30 Dose: 20 ml Problem List Abnormal echocardiogram (Acute) Asthma (Chronic) Psoriasis (Chronic) Acute CHF (congestive heart failure) (Acute) Hypertension (Chronic) Morbid obesity (Chronic) SOC: she is a nonsmoker. She does not drink alcohol. She lives with her in [place]. 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 FAM: MEN syndrome. ROS: 10 point review of systems is negative other than as above. PHYSICAL EXAM: Vitals: Vital Signs Temp 97.8 F 09/25/17 02:54 Pulse 78 09/25/17 06:57 Resp 20 H 09/25/17 02:54 BP 133/87 H 09/25/17 02:54 Pulse Ox 92 09/25/17 02:54 Intake & Output 09/23/17 09/24/17 09/25/17 23:59 23:59 23:59 Intake Total 570 / 570 720 / 720 400 / 400 Output Total 3300 / 3300 3900 / 3900 1000 / 1000 Balance -2730 / -2730 -3180 / -3180 -600 / -600 Weight: 135.7 kg 129.8 kg 128.8 kg Intake: Oral 570 / 570 720 / 720 400 / 400 Output: Urine 3300 / 3300 3900 / 3900 1000 / 1000 Obese and somewhat Cushingoid-appearing and in no acute distress. EYES: Sclerae are anicteric bilaterally. LYMPHATIC: There is no palpable cervical, supraclavicular adenopathy. RESPIRATORY: Inspiratory breath sounds are markedly diminished in all [place]. CARDIOVASCULAR: Rhythm is regular. ABDOMEN: The abdomen is obese and non-tender. Extremities: Signficant swelling and edema. SKIN: No jaundice. ASSESSMENT/PLAN: 1) Bilateral adrenal gland masses versus hyperplasia. Assessment: -In summary the patient is a 57-year-old female who has a family history significant for MEN syndrome. The subtype is unknown. The patient presented with increasing obesity, significant hypertension, cardiomyopathy and radiographic findings of bilateral adrenal gland hyperplasia versus masses. She does not have GI symptoms to suggest MEN type 1. 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 -She requires endocrinologic workup and management. -I would not recommend biopsy at this juncture due to the concern of possible pheochromocytoma. -Best if transferred to tertiary center to expedite the work up. Plan: -Discussed with Dr. Berry who will arrange transfer.
--- NOTE | 2017-09-25 08:48 | CON.PCM_ITS ---
Problem List (1) Adrenal hyperplasia Status: Acute - Consult Date of Consult: 09/25/17 - Reason for Consult HPI: Patient is a 57-year-old female who has history of asthma. She was admitted for progressive dyspnea and volume overload. She was found to have congestive heart failure with an EF of 35%. A CT scan of the abdomen and pelvis done demonstrated significant bilateral adrenal gland enlargement/mass. Patient relates that over the last year she's gained proximally 70 pounds. 30 pounds were within the last month. She was seen by her primary care physician at the [facility] and because of her history of asthma was given a renewal on her inhaler and placed on diuresis. Patient had ran out of her inhaler some time ago. She has an infrequent cough with no sputum production. She has chest pressure with exertion. Lower extremity swelling has started decrease in starting diuresis. She has no abdominal pain or diarrhea. Significantly, her brother and her maternal grand father carry a diagnosis of MEN syndrome. Subtype is unknown. Allergies Penicillins Adverse Reaction (Verified 08/02/15 08:50) Unknown Current Medications Acetaminophen (Tylenol) 650 mg PO Q6H PRN PRN PRN Reason: PAIN Last Admin: 09/25/17 00:33 Dose: 650 mg Albuterol/Ipratropium (Duoneb) 3 ml INHALATION Q6H.RT [facility] Last Admin: 09/25/17 07:13 Dose: 3 ml Aspirin (Aspirin, Baby) 81 mg PO DAILY@0800 [facility] Last Admin: 09/24/17 11:00 Dose: 81 mg Bisacodyl (Dulcolax) 5 mg PO DAILY PRN PRN PRN Reason: Constipation Carvedilol (Coreg) 6.25 mg PO BID [facility] Last Admin: 09/24/17 21:11 Dose: 6.25 mg Cholecalciferol (Vitamin D) 1,000 unit PO DAILY [facility] Last Admin: 09/24/17 11:00 Dose: 1,000 unit Enoxaparin Sodium (Lovenox) 40 mg SC DAILY@1000 [facility] Last Admin: 09/24/17 11:02 Dose: 40 mg Furosemide (Lasix) 40 mg IV TID [facility] Last Admin: 09/25/17 05:26 Dose: 40 mg Hydralazine HCl (Apresoline) 5 mg IV Q6H PRN PRN PRN Reason: BLOOD PRESSURE Losartan Potassium (Cozaar) 100 mg PO DAILY [facility] Last Admin: 09/24/17 11:00 Dose: 100 mg Magnesium Hydroxide (Milk Of Magnesia) 30 ml PO DAILY PRN PRN Reason: Constipation Melatonin (Melatonin) 3 mg PO QHS [facility] Last Admin: 09/24/17 21:03 Dose: 3 mg Ondansetron HCl (Zofran) 4 mg IV Q8H PRN PRN PRN Reason: Nausea Potassium Chloride (K-Dur) 40 meq PO DAILYCM [facility] Last Admin: 09/25/17 08:10 Dose: 40 meq Psyllium Hydrophilic Mucilloid (Metamucil) 1 packet PO DAILY PRN PRN PRN Reason: CONSTIPATION Sodium Chloride () 5 - 30 ml IV UD PRN PRN Reason: SALINE FLUSH Last Admin: 09/25/17 05:30 Dose: 20 ml Problem List Abnormal echocardiogram (Acute) Asthma (Chronic) Psoriasis (Chronic) Acute CHF (congestive heart failure) (Acute) Hypertension (Chronic) Morbid obesity (Chronic) SOC: she is a nonsmoker. She does not drink alcohol. She lives with her in [place]. She works as a insurance office manager. FAM: MEN syndrome. ROS: 10 point review of systems is negative other than as above. PHYSICAL EXAM: Vitals: Vital Signs Temp 97.8 F 09/25/17 02:54 Pulse 78 09/25/17 06:57 Resp 20 H 09/25/17 02:54 BP 133/87 H 09/25/17 02:54 Pulse Ox 92 09/25/17 02:54 Intake & Output 09/23/17 09/24/17 09/25/17 23:59 23:59 23:59 Intake Total 570 / 570 720 / 720 400 / 400 Output Total 3300 / 3300 3900 / 3900 1000 / 1000 Balance -2730 / -2730 -3180 / -3180 -600 / -600 Weight: 135.7 kg 129.8 kg 128.8 kg Intake: Oral 570 / 570 720 / 720 400 / 400 Output: Urine 3300 / 3300 3900 / 3900 1000 / 1000 Obese and somewhat Cushingoid-appearing and in no acute distress. EYES: Sclerae are anicteric bilaterally. LYMPHATIC: There is no palpable cervical, supraclavicular adenopathy. RESPIRATORY: Inspiratory breath sounds are markedly diminished in all [place]. CARDIOVASCULAR: Rhythm is regular. ABDOMEN: The abdomen is obese and non-tender. Extremities: Signficant swelling and edema. SKIN: No jaundice. ASSESSMENT/PLAN: 1) Bilateral adrenal gland masses versus hyperplasia. Assessment: -In summary the patient is a 57-year-old female who has a family history significant for MEN syndrome. The subtype is unknown. The patient presented with increasing obesity, significant hypertension, cardiomyopathy and radiographic findings of bilateral adrenal gland hyperplasia versus masses. She does not have GI symptoms to suggest MEN type 1. 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 -She requires endocrinologic workup and management. -I would not recommend biopsy at this juncture due to the concern of possible pheochromocytoma. -Best if transferred to tertiary center to expedite the work up. Plan: -Discussed with Dr. Berry who will arrange transfer.
[2017-09-25] MEDS: Enoxaparin 40 MG/0.4 ML Syringe SC (09:50)
[2017-09-25] MEDS: Losartan Potassium 100 MG Tablet PO (09:50)
[2017-09-25] MEDS: Aspirin 81 MG TAB.CHEW PO (09:50)
[2017-09-25] MEDS: Carvedilol 6.25 MG Tablet PO ×2 (09:50→21:18)
--- NOTE | 2017-09-25 13:37 | PN.CARD_ITS ---
Subjectve: Patient sitting in a chair, no acute distress. Diuresing nicely. Reports marked improvement of her breathing but still not able to lay down flat. Lower extremity edema mildly improved. Objective: Vital Signs Temp Pulse Resp BP Pulse Ox 98.1 F 79 18 116/86 H 95 09/25/17 08:45 09/25/17 11:07 09/25/17 08:45 09/25/17 08:45 09/25/17 08:45 Oxygen Flow Rate 2 Oxygen Delivery Method Nasal Cannula Weight: 283 lb 15.286 oz Body Mass Index (BMI) 51.3 Intake and Output for Last 24 Hours 09/23/17 09/24/17 09/25/17 23:59 23:59 23:59 Intake Total 570 / 570 720 / 720 820 / 820 Output Total 3300 / 3300 3900 / 3900 2200 / 2200 Balance -2730 / -2730 -3180 / -3180 -1380 / -1380 General: Awake, Alert, Oriented x 3 HEENT: PERRL, EOMI, Sclera Non Icteric Neck: Supple, Good ROM, No Lymph Node Enlargement Lungs: Clear to auscultation Cardiovascular: Regular Rhythm, Normal S1, Normal S2, No Murmurs, No Rubs, No Gallops Vascular: No Carotid Bruits, Normal Femoral Pulses, Normal Radial Pulses, Normal Dorsalis Pedal Pulse, Normal Posterior Tibial Pulses Abdomen: Bowel Sounds Present, Soft, Non Tender, No HSM, No Organomegaly Extremities: No Cyanosis, No Clubbing, No edema Neurological: No Focal Motor or Sensory Deficit 09/25/17 06:00: WBC 9.1, RBC 5.29, Hgb 14.0, Hct 48.0 H, MCV 90.7, MCH 26.5 L, MCHC 29.2 L, RDW 15.3 H, RDW Differential 50.6 H, Plt Count 170, MPV 11.6, Immature Gran % (Auto) 1.000 H, Neut % (Auto) 78.3 H, Lymph % (Auto) 7.6 L, [place] % (Auto) 8.8, Eos % (Auto) 3.9, Baso % (Auto) 0.4, Absolute Neuts (auto) 7.1, Total Counted Not Reportable 09/25/17 06:00: PT 14.9, INR 1.2, APTT 26.7 09/25/17 06:00: Sodium 144, Potassium 4.0, Chloride 101, Carbon Dioxide 37.0 H, Anion Gap 6, BUN 17, Creatinine 1.00, Est GFR (MDRD) Af Amer 74, Est GFR (MDRD) Non-Af 61, BUN/Creatinine Ratio 17.1, Glucose 94, Calcium 8.7, Total Bilirubin 1.00 Rhythm: Normal sinus rhythm PVC EKG: ECHO: Stress Test: Cardiac Cath: PCI: CT Surgery: Holter monitor: EPS: PPM: CXR: Chest CT Scan: Assessment/Plan 1. LV dysfunction: The patient has evidence of worsening LV function on 2D echo with Doppler as well as evidence of biventricular failure with pleural effusion, ascites, lower extremity edema. She is unable to lay down flat at this time so right femoral artery access is somewhat problematic given her large pannus. In addition of this the patient is found to have bilateral adrenal masses, which will need to be further investigated either with a biopsy or open resection. According to the patient, she had been diagnosed in the past with multiple endocrine neoplasia. At this point I would recommend gentle diuresis with Lasix IV 40 mg 3 times daily and attempt to try and decompress her abdomen so as to gain access to her right femoral artery for left heart catheterization evaluation. If coronary axis is still problematic, would recommend diagnostic coronary angiography via her right radial approach. My understanding is that consideration is being made to transfer the patient to the [facility] given her multiple endocrine neoplasia and adrenal tumors, at which time she can have a diagnostic coronary angiogram via the right radial approach. I have relayed this information to her hospitalist Dr. Delgado for. Her TSH is normal. Recommend replacing her potassium as well. Keep potassium above 4.0. Also recommend checking her magnesium level and adjusting this upwards above 2.0 as well. Continue baby aspirin for now. I am also in agreement with high-dose losartan for afterload reduction as well. Would hold off on adding aspirin and Plavix until catheterization is been completed so as to avoid complications should she require needle biopsy of her adrenals or open resection. 2. Hyperlipidemia: Her LDL is 77, and HDL is 30. 3. Thank you very much for the opportunity to participate in the cardiac care of your patient. We will sign off, please call for any questions. Code Visit Inpatient E&M: 77994 Subs Hosp L2
--- NOTE | 2017-09-25 15:25 | CASEMGMT ---
Social Work Met with pt in room to discuss advance directives. SW explained both health care POA and living will to pt. Pt confirms that she does want to fill out HC POA but needs to talk to her sister first and sister is working until 8pm. SW explained that documents can be completed while at [facility] or if pt is transferred to another facility, she can request assistance there with completing the forms. SW also informed pt that papers can be completed when she returns to the community. Blank advance directive forms and you have a choice booklet left with pt. CHOLO Ahumada
--- NOTE | 2017-09-25 17:17 | US_ITS ---
STUDY: ABDOMINAL ULTRASOUND - RIGHT UPPER QUADRANT REASON FOR VISIT: Female, 57 years old. Assessment for ascites. TECHNIQUE: Ultrasound evaluation of the 4 quadrants was performed with real-time and static weinstein-scale imaging. TECHNICAL QUALITY: Adequate. COMPARISON: None. FINDINGS: Abdominal survey was obtained. A small amount of perihepatic fluid is seen. Not enough fluid for paracentesis. US/Abdomen Limited IMPRESSION: Small amount of perihepatic fluid. Electronically Signed: Esteban Perry MD at 11:44 EST Tel [phone], Service support ,
[2017-09-25] MEDS: MELATONIN 3 MG TABLET PO (21:18)
[2017-09-26] VITALS (17 sets, daily range): BP systolic 102–138; BP diastolic 61–88; PULSE 68–100; RESP 16–20; TEMP 36.9–37.2; O2SAT 88–95
[2017-09-26] MEDS: Ipratropium/Albuterol Sulfate 3 ML AMPUL.NEB INHALATION ×5 (01:02→20:16)
[2017-09-26] MEDS: Ondansetron 4 MG/2 ML Vial IV (01:16)
[2017-09-26] MEDS: 0.9% NaCl Peripheral Flush Adult/Peds IV ×2 (01:16→05:17)
[2017-09-26] MEDS: Furosemide 40 MG/4 ML Vial IV ×3 (05:17→21:11)
--- NOTE | 2017-09-26 08:01 | PCM.PROGNOTE ---
Patient Problems: Active and Suspected Problems MEN 2A (multiple endocrine neoplasia, type 2A) (Acute) Abnormal echocardiogram (Acute) Adrenal hyperplasia (Acute) Acute CHF (congestive heart failure) (Acute) Subjective: Chief complaint: Follow-up after admission for acute systolic CHF, acute hypoxic respiratory failure, diffuse ascites and bilateral adrenal masses. Patient seen and examined. No acute events overnight. Shortness of breath stable, has been improving slowly. Denied any other complaints. Her vital signs are stable, pulse ox is 92% on 2 L. - Physical Exam General: Alert, Oriented x3, Cooperative, - - Minimal shortness of breath. HEENT: Atraumatic, PERRLA, EOMI Oral: Moist Mucosa, No Gingival or Mucosal Lesions/ Ulcerations Neck: Supple, No JVD, Negative Carotid Bruits, Trachea Midline, Thyroid Normal Size and Texture Lungs: Clear to auscultation, No rhonchi, No wheeze, No rales, Diminished Cardiovascular: Regular rate, Regular Rhythm, Normal S1, Normal S2, No murmurs Abdomen: Bowel Sounds Present, Soft, Non Tender, Non-Distended, No Hepato-splenomegaly Extremities: No clubbing, No cyanosis, No edema Skin: No rashes, No breakdown Lymphatic: No Cervical, Supraclavicular, or Inguinal Adenopathy Neurological: Cranial nerves II-XII grossly intact, Neuro grossly intact Psych/Mental Status: Normal Affect, Appropriate, Alert and oriented to time, place, person, mood and affect Vital Signs Temp Pulse Resp BP Pulse Ox 98.5 F 83 16 102/68 92 09/26/17 02:25 09/26/17 07:28 09/26/17 07:13 09/26/17 02:25 09/26/17 07:49 Oxygen Flow Rate 2 Oxygen Delivery Method Nasal Cannula Weight: 275 lb 5.718 oz Body Mass Index (BMI) 51.3 Intake and Output for Last 24 Hours 09/24/17 09/25/17 09/26/17 23:59 23:59 23:59 Intake Total 720 / 720 1420 / 1420 120 / 120 Output Total 3900 / 3900 2750 / 2750 1000 / 1000 Balance -3180 / -3180 -1330 / -1330 -880 / -880 Microbiology Past 72 Hours 09/24/17 11:10 Urine Culture - Preliminary Urine, Clean Catch Streptococcus group B 09/24/17 10:15 Gram Stain - Final Wound - Abdominal Wound Culture - Preliminary Gram positive organism Laboratory Tests Past 24 Hrs 09/24/17 18:35 Cortisol 15.50 Assessment/Plan Active and Suspected Problems MEN 2A (multiple endocrine neoplasia, type 2A) (Acute) Abnormal echocardiogram (Acute) Adrenal hyperplasia (Acute) Acute CHF (congestive heart failure) (Acute) This is a 57 years old female patient presented to the emergency room because of progressively increasing shortness of breath, abdominal distention and leg edema that has been going on for around 6 months and she was found to have acute new onset systolic CHF, abdominal distention with questionable ascites in context of history of questionable benign ovarian tumor. #1 acute new onset systolic CHF: She is on IV Lasix, Coreg and losartan. Her symptoms have been improving. Troponin is negative ?3. 2D echocardiogram showed ejection fraction of 35%, small pericardial effusion without tamponade, other findings reviewed. She never had a history of coronary artery disease and never been diagnosed with CHF. Plan: DC IV Lasix, start oral Lasix twice daily. Yesterday, I spoke with transfer line of the [facility] to transfer the patient and the admitting physician declined to transfer but he did not talk to me. The reason for transfer is to have cardiac catheterization through the radial approach, evaluation by Endocrinology. Patient highly preferred to go to [facility] because her can drive only to [place]. I will contact [facility] again today for transfer. #2 acute respiratory insufficiency: Secondary to above in addition to morbid obesity and history of bronchial asthma. She reported minimal improvement of her shortness of breath, pulse ox is 92% on 2 L. Plan as above. #3 bilateral adrenal masses: CT scan abdomen and pelvis without contrast revealed bilateral adrenal masses, larger in size, inhomogenous solid masses. Patient mentioned that her blood pressure is always difficult to control and this raises concern of possible pheochromocytoma. Random cortisol is normal. Other hormonal studies including metanephrines are pending. Patient mentioned that she has family history of multiple endocrine neoplasia, unclear type. Plan to transfer to tertiary care center for endocrinological evaluation. #4 ascites: Could be multifactorial secondary to CHF in addition to possible adrenal malignancy. It was sent down for ultrasound-guided paracentesis but ultrasound revealed no evidence of ascites. Procedure was canceled. #5 Anterior abdominal wall old surgical scar with open wound with drainage: There is no evidence of erythema or swelling around this old surgical scar but there is serous drainage. Wound culture revealed gram-positive organism, final is pending. Patient is afebrile, no leukocytosis. Wound care nurse consulted. She will be started on IV Rocephin for strep agalactiae acute cystitis. #6 strep agalactiae acute cystitis: Culture revealed strep agalactiae. She is afebrile, no leukocytosis. Plan to treat her with IV Rocephin to cover both for cystitis and possible anterior abdominal wall wound infection. #7 hypokalemia: Secondary to HCTZ as well as IV Lasix. Potassium replaced and corrected, yesterday's potassium is 4. #8 bronchial asthma: Continue on DuoNeb every 6 hours, albuterol as needed, oxygen by nasal cannula to keep O2 saturation more than 92%. #9 hypertension: Blood pressure stable, continue losartan and Coreg as above. #10 psoriasis: Not on treatment. She has multiple psoriatic plaques on both elbows and knees. #10 DVT prophylaxis: Subcu Lovenox. This note was generated with [employer] software. It may contain incorrect words, spelling, and punctuation that were not noted in checking the note before signing.
[2017-09-26] MEDS: Carvedilol 6.25 MG Tablet PO ×2 (09:18→21:11)
[2017-09-26] MEDS: Aspirin 81 MG TAB.CHEW PO (09:18)
[2017-09-26] MEDS: Enoxaparin 40 MG/0.4 ML Syringe SC (09:19)
[2017-09-26] MEDS: Losartan Potassium 100 MG Tablet PO (09:19)
[2017-09-26] MEDS: Ceftriaxone 1 GM/50 ML BAG IV (09:37)
--- NOTE | 2017-09-26 14:43 | PN.CARD_ITS ---
Subjectve: Patient doing well, continues to diurese without difficulty. Feels much better. Able to lay down flat, still with significant pannus although improving. Lower extremity edema is about 2+ bilaterally. Telemetry shows normal sinus rhythm. Objective: Vital Signs Temp Pulse Resp BP Pulse Ox 98.5 F 90 18 138/88 H 93 09/26/17 08:11 09/26/17 13:25 09/26/17 13:25 09/26/17 08:11 09/26/17 08:11 Oxygen Flow Rate 2 Oxygen Delivery Method Nasal Cannula Weight: 275 lb 5.718 oz Body Mass Index (BMI) 51.3 Intake and Output for Last 24 Hours 09/24/17 09/25/17 09/26/17 23:59 23:59 23:59 Intake Total 720 / 720 1420 / 1420 470 / 470 Output Total 3900 / 3900 2750 / 2750 1000 / 1000 Balance -3180 / -3180 -1330 / -1330 -530 / -530 General: Awake, Alert, Oriented x 3 HEENT: PERRL, EOMI, Sclera Non Icteric Neck: Supple, Good ROM, No Lymph Node Enlargement Lungs: Clear to auscultation Cardiovascular: Regular Rhythm, Normal S1, Normal S2, No Murmurs, No Rubs, No Gallops Vascular: No Carotid Bruits, Normal Femoral Pulses, Normal Radial Pulses, Normal Dorsalis Pedal Pulse, Normal Posterior Tibial Pulses Abdomen: Bowel Sounds Present, Soft, Non Tender, No HSM, No Organomegaly Extremities: No Cyanosis, No Clubbing, No edema Neurological: No Focal Motor or Sensory Deficit Rhythm: EKG: ECHO: Stress Test: Cardiac Cath: PCI: CT Surgery: Holter monitor: EPS: PPM: CXR: Chest CT Scan: Assessment/Plan 1. LV dysfunction: The patient has evidence of worsening LV function on 2D echo with Doppler as well as evidence of biventricular failure with pleural effusion, ascites, lower extremity edema. Hopefully tomorrow she is unable to lay down flat at this time so right femoral artery access is somewhat problematic given her large pannus. If we cannot access her groin, we can consider radial approach. In addition of this the patient is found to have bilateral adrenal masses, which will need to be further investigated either with a biopsy or open resection. According to the patient, she had been diagnosed in the past with multiple endocrine neoplasia. Given the fact that she may need surgery, we will hold off on loading her with Plavix at this time. Should she require intervention, we can load her with Brilinta and then returned to the [facility], or transfer her to [facility] where she can undergo radial intervention. In addition we will continue Lasix IV 40 mg 3 times daily, and I will add metolazone 2.5 mg ?1 now to augment diuresis. I am also in agreement with high-dose losartan for afterload reduction as well. Would hold off on adding Plavix until catheterization is been completed so as to avoid complications should she require needle biopsy of her adrenals or open resection. 2. Hyperlipidemia: Her LDL is 77, and HDL is 30. 3. Thank you very much for the opportunity to participate in the cardiac care of your patient. Discussed with Dr. Saxena. Code Visit Inpatient E&M: 06959 Subs Hosp L2
[2017-09-26] MEDS: Metolazone 2.5 MG Tablet PO (15:16)
[2017-09-27] VITALS (16 sets, daily range): BP systolic 116–148; BP diastolic 69–78; PULSE 80–85; RESP 16–18; TEMP 36.8–37.4; O2SAT 92–96
[2017-09-27 04:04] LABS: International Normalized Ratio 1.2; Prothrombin Time (Protime)PT. 14.7 SECONDS (11.7-14.9)
[2017-09-27 04:05] LABS: Partial Thromboplast Time 26.9 Seconds (24.1-36.2)
[2017-09-27 04:14] LABS: Anion Gap 6 (5-15); BUN 22 mg/dL (7-18); BUN/Creat Ratio 20.2 RATIO (10-20); Calcium,Total 8.3 mg/dL (8.5-10.1); Chloride 92 mmol/L (98-107); Creatinine, Serum 1.09 mg/dL (0.55-1.02); EST Glomerular Filtration Rate 55 mL/min (>60); Est Glom Filt Rate - Afr Amer 67 mL/min (>60); Estimated Creatinine Clearance 49.77 ml/min; Glucose 104 mg/dL (74-106); Sodium Level 138 mmol/L (136-145)
[2017-09-27 05:30] LABS: Absolute Lymphocyte Count 1.07 X10^3/ul (0.83-4.51); Absolute Neutrophil Count 9.2 X10^3/uL (2.0-7.7); Basophil# 0.04 X10^3/uL; Basophil% 0.3 % (0-1); Eosinophil# 0.12 X10^3/uL; Hematocrit 44.2 % (37-47); Hemoglobin 12.7 g/dl (12.0-15.0); Lymphocyte # 1.07 X10^3/ul (4.0); Lymphocyte % 9.2 % (19-41); Mean Corp Hgb Conc 28.7 g/gl (32-36); Mean Corpuscular Hgb 26.6 pg (27.0-32.0); Mean Corpuscular Volume 92.5 fL (81-99); Monocyte# 1.18 X10^3/uL; Monocyte% 10.1 % (0-10); Neutrophil # 9.19 X10^3/uL (2.7-7.7); Neutrophil % 78.7 % (47-70); Platelet Count 188 K/mm3 (150-450); RBC Distribution Width CV 15.2 % (11.6-14.6); RBC Distribution Width SD 51.3 fl (35.1-43.9); Red Blood Count 4.78 M/mm3 (4.2-5.4); White Blood Count 11.7 K/mm3 (4.4-11.0)
[2017-09-27 05:39] LABS: POSITIVE COUNT NO; POSITIVE DIFFERENTIAL NO; POSITIVE MORPHOLOGY NO
--- NOTE | 2017-09-27 05:55 | EKG12_ITS ---
Test Reason : AM EKG Blood Pressure : / mmHG Vent. Rate : 087 BPM Atrial Rate : 087 BPM P-R Int : 150 ms QRS Dur : 084 ms QT Int : 374 ms P-R-T Axes : 033 017 042 degrees QTc Int : 450 ms Normal sinus rhythm Normal ECG When compared with ECG of 23-SEP-2017 11:07, Premature ventricular complexes are no longer Present Confirmed by VIVEK GAYTAN ([id number]), department editor JOS LOPEZ ([id number]) on 10/01/2017 2:28:03 PM Referred By: DR GUTIÉRREZ Confirmed By:VIVEK GAYTAN
[2017-09-27] MEDS: Carvedilol 6.25 MG Tablet PO (06:16)
[2017-09-27] MEDS: Aspirin 81 MG TAB.CHEW PO (06:16)
[2017-09-27] MEDS: Losartan Potassium 100 MG Tablet PO (06:17)
[2017-09-27] MEDS: Ipratropium/Albuterol Sulfate 3 ML AMPUL.NEB INHALATION (07:17)
--- NOTE | 2017-09-27 08:12 | PN_ITS ---
Patient Problems: Active and Suspected Problems Abnormal echocardiogram (Acute) Adrenal hyperplasia (Acute) Acute CHF (congestive heart failure) (Acute) Subjective: Chief complaint: Follow-up after admission for acute systolic CHF, acute hypoxic respiratory failure, diffuse ascites and bilateral adrenal masses. Patient seen and examined. No acute events overnight. She is a poor informant but she remained stable, no specific complaints. Shortness of breath is stable. Denies any other complaints. Vital signs are stable, afebrile, pulse ox is 94% on 2 L. - Physical Exam General: Alert, Oriented x3, Cooperative, No apparent distress HEENT: Atraumatic, PERRLA, EOMI Oral: Moist Mucosa, No Gingival or Mucosal Lesions/ Ulcerations Neck: Supple, No JVD, Negative Carotid Bruits, Trachea Midline, Thyroid Normal Size and Texture Lungs: Clear to auscultation, No rhonchi, No wheeze, No rales, Diminished Cardiovascular: Regular rate, Regular Rhythm, Normal S1, Normal S2, PMI Normal Abdomen: Bowel Sounds Present, Soft, Non Tender, No Hepato-splenomegaly, Distended, Obese, - - Distended abdomen, abdominal wall edema, wound. Extremities: No clubbing, No cyanosis, Edema - ++ Edema. Skin: No rashes, Ulcer/ Wound Lymphatic: No Cervical, Supraclavicular, or Inguinal Adenopathy Neurological: Cranial nerves II-XII grossly intact, Motor Exam 5/5 strength throughout Psych/Mental Status: Normal Affect, Appropriate Vital Signs Temp Pulse Resp BP Pulse Ox 99.2 F H 80 18 129/73 H 94 09/27/17 06:14 09/27/17 07:08 09/27/17 06:14 09/27/17 06:14 09/27/17 06:14 Oxygen Flow Rate 2 Oxygen Delivery Method Nasal Cannula Weight: 275 lb 5.718 oz Body Mass Index (BMI) 51.3 Intake and Output for Last 24 Hours 09/25/17 09/26/17 09/27/17 23:59 23:59 23:59 Intake Total 1420 / 1420 1310 / 1310 120 / 120 Output Total 2750 / 2750 2200 / 2200 400 / 400 Balance -1330 / -1330 -890 / -890 -280 / -280 Microbiology Past 72 Hours 09/24/17 10:15 Gram Stain - Final Wound - Abdominal Wound Culture - Final Staphylococcus aureus Gram positive willie 09/24/17 11:10 Urine Culture - Final Urine, Clean Catch Streptococcus agalactiae (B) Laboratory Tests Past 24 Hrs 09/26/17 09/27/17 09/27/17 06:00 03:40 03:40 WBC RBC Hgb Hct MCV MCH MCHC RDW RDW Differential Plt Count MPV Immature Gran % (Auto) Neut % (Auto) Lymph % (Auto) [place] % (Auto) Eos % (Auto) Baso % (Auto) Absolute Neuts (auto) Absolute Lymphs (auto) Total Counted PT 14.7 INR 1.2 APTT 26.9 Sodium 138 Potassium 4.0 Chloride 92 L Carbon Dioxide 40.0 H Anion Gap 6 BUN 22 H Creatinine 1.09 H Estim Creat Clear Calc 49.77 Est GFR (MDRD) Af Amer 67 Est GFR (MDRD) Non-Af 55 L BUN/Creatinine Ratio 20.2 H Glucose 104 Calcium 8.3 L Miscellaneous Test Pending 09/27/17 05:00 WBC 11.7 H RBC 4.78 Hgb 12.7 Hct 44.2 MCV 92.5 MCH 26.6 L MCHC 28.7 L RDW 15.2 H RDW Differential 51.3 H Plt Count 188 MPV 12.0 Immature Gran % (Auto) 0.700 Neut % (Auto) 78.7 H Lymph % (Auto) 9.2 L [place] % (Auto) 10.1 H Eos % (Auto) 1.0 Baso % (Auto) 0.3 Absolute Neuts (auto) 9.2 H Absolute Lymphs (auto) 1.07 Total Counted Not Reportable PT INR APTT Sodium Potassium Chloride Carbon Dioxide Anion Gap BUN Creatinine Estim Creat Clear Calc Est GFR (MDRD) Af Amer Est GFR (MDRD) Non-Af BUN/Creatinine Ratio Glucose Calcium Miscellaneous Test Assessment/Plan Active and Suspected Problems Abnormal echocardiogram (Acute) Adrenal hyperplasia (Acute) Acute CHF (congestive heart failure) (Acute) This is a 57 years old female patient presented to the emergency room because of progressively increasing shortness of breath, abdominal distention and leg edema that has been going on for around 6 months and she was found to have acute new onset systolic CHF, abdominal distention with questionable ascites in context of history of questionable benign ovarian tumor. #1 acute new onset systolic CHF: She is on IV Lasix, Coreg and losartan. Her symptoms have been improving. Troponin is negative ?3. 2D echocardiogram showed ejection fraction of 35%, small pericardial effusion without tamponade, other findings reviewed. During on the case, plan for cardiac catheterization today. #2 acute respiratory insufficiency: Secondary to above in addition to morbid obesity and history of bronchial asthma. She reported improvement of her shortness of breath, pulse ox is 94% on 2 L. Plan as above. #3 bilateral adrenal masses: CT scan abdomen and pelvis without contrast revealed bilateral adrenal masses, larger in size, inhomogenous solid masses. Patient mentioned that her blood pressure is always difficult to control and this raises concern of possible pheochromocytoma. Random cortisol is normal. Other hormonal studies including metanephrines are pending. Patient mentioned that she has family history of multiple endocrine neoplasia, unclear type. Plan : Patient may need transfer for endocrinological evaluation after the heart catheterization. #4 ascites: she was sent down for ultrasound-guided paracentesis but ultrasound revealed no evidence of ascites. Procedure was canceled. #5 Anterior abdominal wall old surgical scar with open wound with drainage: There is no evidence of erythema or swelling around this old surgical scar but there is serous drainage. Wound culture revealed MSSA. Patient is afebrile, no leukocytosis. Wound care nurse consulted. She is on IV Rocephin. #6 strep agalactiae acute cystitis: She is on IV Rocephin. Culture revealed strep agalactiae. She is afebrile, no leukocytosis. #7 hypokalemia: Secondary to HCTZ as well as IV Lasix. Potassium replaced and corrected, yesterday's potassium is 4. #8 bronchial asthma: Continue on DuoNeb every 6 hours, albuterol as needed, oxygen by nasal cannula to keep O2 saturation more than 92%. #9 hypertension: Blood pressure stable, continue losartan and Coreg as above. #10 psoriasis: Not on treatment. She has multiple psoriatic plaques on both elbows and knees. #10 DVT prophylaxis: Subcu Lovenox. This note was generated with [employer]ation software. It may contain incorrect words, spelling, and punctuation that were not noted in checking the note before signing.
[2017-09-27] MEDS: DiphenhydrAMINE 25 MG Capsule 50 MG PO (09:25)
[2017-09-27] MEDS: 0.9% Normal Saline 1,000 ML 15 ML IV (09:25)
--- NOTE | 2017-09-27 10:40 | CL.D_ITS ---
Patient Name: SHREE LOPEZ Study Date: 09/27/2017 Performing: Reed Hunter MD Ht: 64 inches 163 cm : 1960 Wt: 275.9 lbs 125 kg Age: 57 Gender: female BSA: 2.25 PROCEDURE(S) PERFORMED [id number]-LAK/COR/LV CLINICAL PROFILE AND INDICATIONS INDICATIONS: Congestive Heart Failure, New onset Stress/Imaging Stress/Image Study Performed: No Angina Classification Anginal Classification w/in 2 Weeks: CCS IV CAD Presentations: Other: 50lb water weight gain, LVEF<30% by echo. Comorbidities/Risk Factors: Hypertension Dyslipidemia CONCLUSIONS Global LV systolic dysfunction- Moderate Normal coronary arteries RECOMMENDATIONS Risk factor modification Continue coreg/cozaar, IV lasix until dry weight achieved, then switch to po lasix. Would not recommend aldactone given adrenal masses. Mynx closure device successful. Pt may be tx to outside facility for endocrine management of adrenal masses. DESCRIPTION OF PROCEDURE The patient arrived to the procedure lab. The risks and benefits of the procedure as well as a full d escription of our services here and current unavailability of surgical backup were fully explained to the patient and/or their significant other prior to the catheterization. The Timeout was completed, verifying the correct patient and procedure. The patient's procedural site was prepped and draped in the usual fashion. Local anesthetic was given subcutaneously to right groin region with Lidocaine 2%. Using a modified Seldinger technique, arterial access was obtained via the right femoral artery, a 4 Fr sheath was inserted Left Coronary Artery selective angiography was performed in multiple views us ing a 4 Fr. JL5 catheter. Right Coronary Artery selective angiography was then performed in multiple views using a 4 Fr. 3DRC catheter. Left Ventriculography was performed in DEAN projection using a 4 Fr . Pigtail catheter. LV to AO pullback pressures were then recorded.The arterial sheath was pulled and a Mynx closure device was deployed for hemostasis CORONARY ANGIOGRAPHY DOMINANCE: Right Dominant LEFT HEART ASSESSMENT Left Ventricular Ejection Fraction: by LV Gram 35 % Global Hypokinesis - Moderate Depressed Left Ventricular systolic function LEFT MAIN: Angiographically normal LEFT ANTERIOR DECENDING ARTERY: Angiographically normal CIRCUMFLEX ARTERY: Angiographically normal RIGHT CORONARY ARTERY: Angiographically normal COMPLICATIONS No Complications PROCEDURE MEDICATIONS Oxygen: 4 L/min via nasal cannula SUMMARY OF HEMODYNAMIC DATA Time AIR REST ECG 09:53:46 AO 113/72 (86) SA 10:12:18 LV 114/-7, 26 10:18:36 LV 121/-13, 18 10:18:44 LVp 122/-13, 21 10:18:49 AOp 126/66 (86) 10:18:55 Signed By Reed Hunter MD On 09/27/2017 10:39:33 Reed Hunter MD
[2017-09-27] MEDS: Enoxaparin 40 MG/0.4 ML Syringe SC (10:57)
[2017-09-27] MEDS: Ceftriaxone 1 GM/50 ML BAG IV (10:59)
--- NOTE | 2017-09-27 11:25 | PCM.PN.CARD ---
Subjectve: Patient continues to diurese well, lower extremities are markedly improved but still not back to dry weight. Patient is now able to lay down flat, and her pannus is soft enough that we can access her right groin. Objective: Vital Signs Temp Pulse Resp BP Pulse Ox 98.7 F 81 16 123/78 H 94 09/27/17 11:15 09/27/17 11:15 09/27/17 11:15 09/27/17 11:15 09/27/17 11:15 Oxygen Flow Rate 4 Oxygen Delivery Method Nasal Cannula Weight: 275 lb 5.718 oz Body Mass Index (BMI) 51.3 Intake and Output for Last 24 Hours 09/25/17 09/26/17 09/27/17 23:59 23:59 23:59 Intake Total 1420 / 1420 1310 / 1310 340 / 340 Output Total 2750 / 2750 2200 / 2200 400 / 400 Balance -1330 / -1330 -890 / -890 -60 / -60 General: Awake, Alert, Oriented x 3 HEENT: PERRL, EOMI, Sclera Non Icteric Neck: Supple, Good ROM, No Lymph Node Enlargement Lungs: Clear to auscultation Cardiovascular: Regular Rhythm, Normal S1, Normal S2, No Murmurs, No Rubs, No Gallops Vascular: No Carotid Bruits, Normal Femoral Pulses, Normal Radial Pulses, Normal Dorsalis Pedal Pulse, Normal Posterior Tibial Pulses Abdomen: Bowel Sounds Present, Soft, Non Tender, No HSM, No Organomegaly Extremities: No Cyanosis, No Clubbing, Bilateral Edema +1 Neurological: No Focal Motor or Sensory Deficit 09/27/17 03:40: PT 14.7, INR 1.2, APTT 26.9 09/27/17 03:40: Sodium 138, Potassium 4.0, Chloride 92 L, Carbon Dioxide 40.0 H, Anion Gap 6, BUN 22 H, Creatinine 1.09 H, Est GFR (MDRD) Af Amer 67, Est GFR (MDRD) Non-Af 55 L, BUN/Creatinine Ratio 20.2 H, Glucose 104, Calcium 8.3 L 09/27/17 05:00: WBC 11.7 H, RBC 4.78, Hgb 12.7, Hct 44.2, MCV 92.5, MCH 26.6 L, MCHC 28.7 L, RDW 15.2 H, RDW Differential 51.3 H, Plt Count 188, MPV 12.0, Immature Gran % (Auto) 0.700, Neut % (Auto) 78.7 H, Lymph % (Auto) 9.2 L, [place] % (Auto) 10.1 H, Eos % (Auto) 1.0, Baso % (Auto) 0.3, Absolute Neuts (auto) 9.2 H, Total Counted Not Reportable Rhythm: EKG: ECHO: Stress Test: Cardiac Cath: Normal coronary arteries, moderate mobile LV dysfunction with EF of 40%. PCI: CT Surgery: Holter monitor: EPS: PPM: CXR: Chest CT Scan: Assessment/Plan 1. LV dysfunction: The patient has evidence of worsening LV function on 2D echo with Doppler as well as evidence of biventricular failure with pleural effusion, ascites, lower extremity edema. Left heart catheterization this morning demonstrated essentially normal coronary arteries, and moderate global LV dysfunction with an EF around 40%. Right heart catheterization not performed due to patient's laying down. Right groin is closed with minx device. At this point I would recommend the patient continue IV Lasix therapy until she is reached her dry weight. She received metolazone 2.5 mg ?1 yesterday, and would not recommend Aldactone given her LV dysfunction and her adrenal masses. Patient may be transferred to either [facility] or [facility] for endocrinology assessment of her adrenal masses. Patient has never received Plavix on this admission. Would recommend continuing baby aspirin. Would recommend repeat echocardiogram once her adrenal masses have been addressed, and that she is gone through cardiac rehab in several months time. Recommend continuing Coreg, Cozaar, and switch to Lasix 80 mg p.o. twice daily when she is reached her dry weight. In addition of this the patient is found to have bilateral adrenal masses, which will need to be further investigated either with a biopsy or open resection. According to the patient, she had been diagnosed in the past with multiple endocrine neoplasia. In addition we will continue Lasix IV 40 mg 3 times daily, and I will add metolazone 2.5 mg ?1 now to augment diuresis. I am also in agreement with high-dose losartan for afterload reduction as well. Would hold off on adding Plavix until catheterization is been completed so as to avoid complications should she require needle biopsy of her adrenals or open resection. 2. Hyperlipidemia: Her LDL is 77, and HDL is 30. 3. Thank you very much for the opportunity to participate in the cardiac care of your patient. Discussed with Dr. Saxena. Code Visit Inpatient E&M: 12712 Subs Hosp L2
--- NOTE | 2017-09-27 11:29 | PN.CARD_ITS ---
Subjectve: Patient continues to diurese well, lower extremities are markedly improved but still not back to dry weight. Patient is now able to lay down flat, and her pannus is soft enough that we can access her right groin. Objective: Vital Signs Temp Pulse Resp BP Pulse Ox 98.7 F 81 16 123/78 H 94 09/27/17 11:15 09/27/17 11:15 09/27/17 11:15 09/27/17 11:15 09/27/17 11:15 Oxygen Flow Rate 4 Oxygen Delivery Method Nasal Cannula Weight: 275 lb 5.718 oz Body Mass Index (BMI) 51.3 Intake and Output for Last 24 Hours 09/25/17 09/26/17 09/27/17 23:59 23:59 23:59 Intake Total 1420 / 1420 1310 / 1310 340 / 340 Output Total 2750 / 2750 2200 / 2200 400 / 400 Balance -1330 / -1330 -890 / -890 -60 / -60 General: Awake, Alert, Oriented x 3 HEENT: PERRL, EOMI, Sclera Non Icteric Neck: Supple, Good ROM, No Lymph Node Enlargement Lungs: Clear to auscultation Cardiovascular: Regular Rhythm, Normal S1, Normal S2, No Murmurs, No Rubs, No Gallops Vascular: No Carotid Bruits, Normal Femoral Pulses, Normal Radial Pulses, Normal Dorsalis Pedal Pulse, Normal Posterior Tibial Pulses Abdomen: Bowel Sounds Present, Soft, Non Tender, No HSM, No Organomegaly Extremities: No Cyanosis, No Clubbing, Bilateral Edema +1 Neurological: No Focal Motor or Sensory Deficit 09/27/17 03:40: PT 14.7, INR 1.2, APTT 26.9 09/27/17 03:40: Sodium 138, Potassium 4.0, Chloride 92 L, Carbon Dioxide 40.0 H , Anion Gap 6, BUN 22 H, Creatinine 1.09 H, Est GFR (MDRD) Af Amer 67, Est GFR ( MDRD) Non-Af 55 L, BUN/Creatinine Ratio 20.2 H, Glucose 104, Calcium 8.3 L 09/27/17 05:00: WBC 11.7 H, RBC 4.78, Hgb 12.7, Hct 44.2, MCV 92.5, MCH 26.6 L, MCHC 28.7 L, RDW 15.2 H, RDW Differential 51.3 H, Plt Count 188, MPV 12.0, Immature Gran % (Auto) 0.700, Neut % (Auto) 78.7 H, Lymph % (Auto) 9.2 L, Whitfield % (Auto) 10.1 H, Eos % (Auto) 1.0, Baso % (Auto) 0.3, Absolute Neuts (auto) 9.2 H, Total Counted Not Reportable Rhythm: EKG: ECHO: Stress Test: Cardiac Cath: Normal coronary arteries, moderate mobile LV dysfunction with EF of 40%. PCI: CT Surgery: Holter monitor: EPS: PPM: CXR: Chest CT Scan: Assessment/Plan 1. LV dysfunction: The patient has evidence of worsening LV function on 2D echo with Doppler as well as evidence of biventricular failure with pleural effusion, ascites, lower extremity edema. Left heart catheterization this morning demonstrated essentially normal coronary arteries, and moderate global LV dysfunction with an EF around 40%. Right heart catheterization not performed due to patient's laying down. Right groin is closed with minx device. At this point I would recommend the patient continue IV Lasix therapy until she is reached her dry weight. She received metolazone 2.5 mg ?1 yesterday, and would not recommend Aldactone given her LV dysfunction and her adrenal masses. Patient may be transferred to either [facility] or [facility] for endocrinology assessment of her adrenal masses. Patient has never received Plavix on this admission. Would recommend continuing baby aspirin. Would recommend repeat echocardiogram once her adrenal masses have been addressed, and that she is gone through cardiac rehab in several months time. Recommend continuing Coreg, Cozaar, and switch to Lasix 80 mg p.o. twice daily when she is reached her dry weight. In addition of this the patient is found to have bilateral adrenal masses, which will need to be further investigated either with a biopsy or open resection. According to the patient, she had been diagnosed in the past with multiple endocrine neoplasia. In addition we will continue Lasix IV 40 mg 3 times daily, and I will add metolazone 2.5 mg ?1 now to augment diuresis. I am also in agreement with high-dose losartan for afterload reduction as well. Would hold off on adding Plavix until catheterization is been completed so as to avoid complications should she require needle biopsy of her adrenals or open resection. 2. Hyperlipidemia: Her LDL is 77, and HDL is 30. 3. Thank you very much for the opportunity to participate in the cardiac care of your patient. Discussed with Dr. Saxena. Code Visit Inpatient E&M: 50054 Subs Hosp L2
--- NOTE | 2017-09-27 12:39 | NURSING ---
NOTIFIED BY KASIE ALMARAZ- PER DR GAYTAN PT'S BEDREST CAN BE UP IN 4 HOURS.
--- NOTE | 2017-09-27 15:05 | NURSING ---
BEDREST UP, AMBULATED IN ROOM (PT DID NOT WANT TO GO OUT IN HALLWAYS) SITE IS C/D NO BLEEDING, NO HEMATOMA, NO C/O PAIN.
--- NOTE | 2017-09-27 15:22 | PCM.DC.SUM ---
Discharge Date and Diagnosis Date of Admission: 09/23/17 Date of Discharge: 09/27/17 - Primary Discharge Diagnosis Active and Suspected Problems #1 acute new onset systolic CHF. #2 nonischemic cardiomyopathy, attributed to uncontrolled hypertension/hypertensive heart disease. #3 acute respiratory insufficiency. #4 bilateral adrenal masses. #5 strep agalactiae acute cystitis. #6 anterior abdominal wall surgical incision/wound drainage, no evidence of significant infection or erythema.. - Secondary Discharge Diagnosis Chronic Problems Asthma (Chronic) Psoriasis (Chronic) Hypertension (Chronic) Morbid obesity (Chronic) Hospital Course and Treatment Imaging Results: Clinical Impression(s) from Imaging Studies Chest X-Ray 09/23/17 11:44 IMPRESSION: Cardiomegaly and CHF. Electronically Signed: Esteban Perry MD at 13:15 EST Tel [phone], Service support , Abdomen/Pelvis CT 09/24/17 09:34 IMPRESSION: Bilateral adrenal masses. Ascites. Small right pleural effusion with underlying atelectasis. Electronically Signed: Esteban Perry MD at 11:09 EST Tel [phone], Service support , Abdomen Ultrasound 09/25/17 17:17 IMPRESSION: Small amount of perihepatic fluid. Electronically Signed: Esteban Perry MD at 11:44 EST Tel [phone], Service support , Consultations 09/24/17 09:33 Consult: Onc/Wound/damage assessor Routine Comment: Reason for Consult:: Midline open surgical incision, drainage. Dr. Hunter/Dr. Edwards, cardiology. Operations: None Procedures: 2-D Echocardiogram, Cardiac catheterization, EGD Summary of Care Provided: The patient is a 57 year old F admitted because of progressive shortness of breath, abdominal distention and leg edema and she was found to have acute systolic congestive heart failure complicated by acute hypoxic aspirate insufficiency and ascites. Also, she was found to have bilateral adrenal masses, hypokalemia and strep agalactiae acute cystitis. #1 acute new onset systolic CHF: Treated with IV Lasix for diuresis as well as Coreg and losartan. Her EKG revealed no evidence of acute ischemic changes. Troponin is negative ?3. 2D echocardiogram showed ejection fraction of 35%, small pericardial effusion without tamponade, other findings reviewed. Never had a history of CAD or cardiac interventions in the past. This acute systolic CHF and low ejection fraction attributed to hypertensive heart disease as patient mentioned that her blood pressure is always not controlled. She underwent cardiac catheterization that revealed no evidence of significant coronary artery disease and no intervention is needed. Patient transferred to [facility] for evaluation by endocrinology for bilateral adrenal masses, questionable fever, cytoma in context of strong family history of multiple endocrine neoplasia. #2 acute respiratory insufficiency: Secondary to above in addition to morbid obesity and history of bronchial asthma. With IV diuresis, her symptoms improved but she remained on 1-2 L of oxygen. #3 bilateral adrenal masses: CT scan abdomen and pelvis without contrast revealed bilateral adrenal masses, larger in size, inhomogenous solid masses. Patient mentioned that her blood pressure is always difficult to control and this raises concern of possible pheochromocytoma. Random cortisol is normal. Other hormonal studies including metanephrines are pending. Patient mentioned that she has family history of multiple endocrine neoplasia, unclear type. Patient was transferred to [facility] for endocrinological evaluation. #4 ascites: Patient sent to radiology for ultrasound-guided paracentesis but it was canceled because there was no large amount of fluid that can be drained. #5 Anterior abdominal wall old surgical scar with open wound with drainage: There was no evidence of erythema or swelling around this old surgical scar but there is serous drainage. Wound culture revealed MSSA. Patient remained afebrile, no leukocytosis. He was treated with IV Rocephin which was mainly for acute cystitis and continued on it upon transfer. #6 strep agalactiae acute cystitis: Treated with IV Rocephin. Urine culture revealed strep agalactiae. Transferred on IV Rocephin. #7 hypokalemia: Secondary to HCTZ as well as IV Lasix. Potassium replaced and corrected. Patient transferred to [facility] for evaluation by endocrinology for bilateral large adrenal masses, uncontrolled hypertension in addition to family history of multiple endocrine neoplasia. I called the accepting physician at that hospital and I explained to him that patient had acute systolic CHF probably due to nonischemic cardiomyopathy secondary to hypertensive heart disease, status post cardiac catheterization that revealed no evidence of significant CAD and no intervention is needed and patient needs evaluation by endocrinology for that reason mentioned above. The admitting doctor accepted the patient in transfer and patient was transferred in a stable medical condition. This note was generated with [employer] dictation software. It may contain incorrect words, spelling, and punctuation that were not noted in checking the note before signing. Home Medications: Medications to take at Discharge Aspirin [Aspirin, Baby] 81 mg PO DAILY 09/23/17 Cholecalciferol (Vitamin D3) [Vitamin D3] 1,000 units PO DAILY 09/23/17 Hydrochlorothiazide [Hctz] 12.5 mg PO BID 09/23/17 Losartan Potassium 50 mg PO BID 09/23/17 Primary Care Physician: Sheri Liu,Out of [NON-STAFF] - Disposition: Acute care Hospital Minutes spent on discharge:: 38 Patient Condition:: Stable Meaningful Use Info Meaningful Use Diagnoses (Choose all that apply): CHF - CHF JASMINA/ARB ordered at discharge?: Yes Documented LVEF (%): 35 Code Visit Inpatient E&M: 15115 Disch Hosp
--- NOTE | 2017-09-27 15:26 | DS.PCM_ITS ---
Discharge Date and Diagnosis Date of Admission: 09/23/17 Date of Discharge: 09/27/17 - Primary Discharge Diagnosis Active and Suspected Problems #1 acute new onset systolic CHF. #2 nonischemic cardiomyopathy, attributed to uncontrolled hypertension/ hypertensive heart disease. #3 acute respiratory insufficiency. #4 bilateral adrenal masses. #5 strep agalactiae acute cystitis. #6 anterior abdominal wall surgical incision/wound drainage, no evidence of significant infection or erythema.. - Secondary Discharge Diagnosis Chronic Problems Asthma (Chronic) Psoriasis (Chronic) Hypertension (Chronic) Morbid obesity (Chronic) Hospital Course and Treatment Imaging Results: Clinical Impression(s) from Imaging Studies Chest X-Ray 09/23/17 11:44 IMPRESSION: Cardiomegaly and CHF. Electronically Signed: Esteban Perry MD at 13:15 EST Tel [phone], Service support , Abdomen/Pelvis CT 09/24/17 09:34 IMPRESSION: Bilateral adrenal masses. Ascites. Small right pleural effusion with underlying atelectasis. Electronically Signed: Esteban Perry MD at 11:09 EST Tel [phone], Service support , Abdomen Ultrasound 09/25/17 17:17 IMPRESSION: Small amount of perihepatic fluid. Electronically Signed: Esteban Perry MD at 11:44 EST Tel [phone], Service support , Consultations 09/24/17 09:33 Consult: Onc/Wound/administrative office clerk Routine Comment: Reason for Consult:: Midline open surgical incision, drainage. Dr. Hunter/Dr. Edwards, cardiology. Operations: None Procedures: 2-D Echocardiogram, Cardiac catheterization, EGD Summary of Care Provided: The patient is a 57 year old F admitted because of progressive shortness of breath, abdominal distention and leg edema and she was found to have acute systolic congestive heart failure complicated by acute hypoxic aspirate insufficiency and ascites. Also, she was found to have bilateral adrenal masses , hypokalemia and strep agalactiae acute cystitis. #1 acute new onset systolic CHF: Treated with IV Lasix for diuresis as well as Coreg and losartan. Her EKG revealed no evidence of acute ischemic changes. Troponin is negative ?3. 2D echocardiogram showed ejection fraction of 35%, small pericardial effusion without tamponade, other findings reviewed. Never had a history of CAD or cardiac interventions in the past. This acute systolic CHF and low ejection fraction attributed to hypertensive heart disease as patient mentioned that her blood pressure is always not controlled. She underwent cardiac catheterization that revealed no evidence of significant coronary artery disease and no intervention is needed. Patient transferred to [facility] for evaluation by endocrinology for bilateral adrenal masses, questionable fever, cytoma in context of strong family history of multiple endocrine neoplasia. #2 acute respiratory insufficiency: Secondary to above in addition to morbid obesity and history of bronchial asthma. With IV diuresis, her symptoms improved but she remained on 1-2 L of oxygen. #3 bilateral adrenal masses: CT scan abdomen and pelvis without contrast revealed bilateral adrenal masses, larger in size, inhomogenous solid masses. Patient mentioned that her blood pressure is always difficult to control and this raises concern of possible pheochromocytoma. Random cortisol is normal. Other hormonal studies including metanephrines are pending. Patient mentioned that she has family history of multiple endocrine neoplasia, unclear type. Patient was transferred to [facility] for endocrinological evaluation. #4 ascites: Patient sent to radiology for ultrasound-guided paracentesis but it was canceled because there was no large amount of fluid that can be drained. #5 Anterior abdominal wall old surgical scar with open wound with drainage: There was no evidence of erythema or swelling around this old surgical scar but there is serous drainage. Wound culture revealed MSSA. Patient remained afebrile, no leukocytosis. He was treated with IV Rocephin which was mainly for acute cystitis and continued on it upon transfer. #6 strep agalactiae acute cystitis: Treated with IV Rocephin. Urine culture revealed strep agalactiae. Transferred on IV Rocephin. #7 hypokalemia: Secondary to HCTZ as well as IV Lasix. Potassium replaced and corrected. Patient transferred to [facility] for evaluation by endocrinology for bilateral large adrenal masses, uncontrolled hypertension in addition to family history of multiple endocrine neoplasia. I called the accepting physician at that hospital and I explained to him that patient had acute systolic CHF probably due to nonischemic cardiomyopathy secondary to hypertensive heart disease, status post cardiac catheterization that revealed no evidence of significant CAD and no intervention is needed and patient needs evaluation by endocrinology for that reason mentioned above. The admitting doctor accepted the patient in transfer and patient was transferred in a stable medical condition. This note was generated with [employer] dictation software. It may contain incorrect words, spelling, and punctuation that were not noted in checking the note before signing. Home Medications: Medications to take at Discharge Aspirin [Aspirin, Baby] 81 mg PO DAILY 09/23/17 Cholecalciferol (Vitamin D3) [Vitamin D3] 1,000 units PO DAILY 09/23/17 Hydrochlorothiazide [Hctz] 12.5 mg PO BID 09/23/17 Losartan Potassium 50 mg PO BID 09/23/17 Primary Care Physician: Sheri Liu,Out of [NON-STAFF] - Disposition: Acute care Hospital Minutes spent on discharge:: 38 Patient Condition:: Stable Meaningful Use Info Meaningful Use Diagnoses (Choose all that apply): CHF - CHF JASMINA/ARB ordered at discharge?: Yes Documented LVEF (%): 35 Code Visit Inpatient E&M: 71516 Disch Hosp
[2017-09-29 08:51] LABS: Renin, Plasma < 0.167 ng/mL/hr (0.167-5.380)
[2017-09-30 11:30] LABS: Renin, Plasma 0.298 ng/mL/hr (0.167-5.380)
== END 2017-09-27 16:51 | disposition short-term general hospital (02) | DRG 287 ==
LOC: ED 12:49 → PCU 14:22
PROVIDERS: Internal Medicine Cardiovascular Disease; Admitting Provider Internal Medicine; Emergency Provider Emergency Medicine; Family Provider Family Medicine; PCP Family Medicine; Visit Provider Hospitalist
DX: I11.0 Hypertensive heart disease with heart failure (principal); I42.9 Cardiomyopathy, unspecified; R18.8 Other ascites; E66.01 Morbid (severe) obesity due to excess calories; N30.00 Acute cystitis without hematuria; Z68.43 Body mass index [BMI] 50.0-59.9, adult; I50.21 Acute systolic (congestive) heart failure; E87.6 Hypokalemia; L40.9 Psoriasis, unspecified; B95.1 Streptococcus, group B, as the cause of diseases classified elsewhere; Z23 Encounter for immunization; R06.89 Other abnormalities of breathing; J45.909 Unspecified asthma, uncomplicated; Z83.41 Family history of multiple endocrine neoplasia [MEN] syndrome; E27.9 Disorder of adrenal gland, unspecified; Z53.8 Procedure and treatment not carried out for other reasons; T50.2X5A Adverse effect of carbonic-anhydrase inhibitors, benzothiadiazides and other diuretics, initial encounter
CPT/HCPCS: 36415; 71046; 74176; 76705; 80048; 80053; 80061; 81001; 82088; 82533; 83615; 83735; 83880; 84244; 84443; 84484; 85025; 85027; 85610; 85730; 87070; 87077; 87086; 87088; 87186; 87205; 93005; 93306; 93458; 94640; 97116; 97162; 97165; 97535; 99285; C1760; J7030; Q9957; Q9967; 90686; A4216; C1769; C1894; J1940; J2405